=== PATIENT | male | born 1935 | race Hispanic/Latino ===

== ENCOUNTER 2016-12-02 06:56 | Day surgery (SDC) | payer MEDICARE ==
[2016-12-02] MEDS ORDERED: NACL 0.9% 500 ML 500 ML IV SCH (08:00)
[2016-12-02] MEDS: SUBLIMAZE ONE ×2 (10:00→10:15)
[2016-12-02] MEDS: XYLOCAINE 2% INFILTRATI ONE ×2 (10:00→10:16)
[2016-12-02] MEDS: VERSED ONE ×2 (10:00→10:15)
[2016-12-02] MEDS: HEPARIN/NS 5000 UNIT/500ML(CATH LAB) 1,000 ML IR ONE ×2 (10:01→10:16)
--- NOTE | 2016-12-02 11:40 | Short Stay Summary ---
Short Stay Documentation Date of service: 12/02/16 - History H&P: obtained from office - Allergies and Medications Current Medications: Allergies clonidine Allergy (Verified 12/02/16 08:23) Unknown aspirin Adverse Reaction (Verified 12/02/16 08:23) Unknown stomach hurts ALL SULFA DRUGS Allergy (Unknown, Uncoded 12/02/16 07:18) Rash Home Medications Medication Instructions Recorded Confirmed Last Taken Type Gabapentin [Neurontin] 300 mg PO BID 12/02/16 12/02/16 12/01/16 History HYDROcodone/APAP 7.5-325 [[place] 1 each PO Q6HR PRN 12/02/16 12/02/16 11/29/16 History 7.5/325] Metoprolol Xl [Metoprolol 100 mg PO QDAY 12/02/16 12/02/16 12/02/16 History SUCCINATE ER TAB] Pregabalin [Lyrica] 75 mg PO BID 12/02/16 12/02/16 12/01/16 History Simvastatin [Zocor TAB] 40 mg PO QHS 12/02/16 12/02/16 12/01/16 History Valsartan [Diovan] 320 mg PO QDAY 12/02/16 12/02/16 12/02/16 History amLODIPine [Norvasc] 10 mg PO DAILY 12/02/16 12/02/16 12/02/16 History Active Medications Sodium Chloride (Nacl 0.9% 500 Ml) 500 mls @ 50 mls/hr IV DIRECT CODY Stop: 12/02/16 17:59 Last Admin: 12/02/16 09:30 Dose: 50 mls/hr - Brief post op/procedure progress note Date of procedure: 12/02/16 Pre-op diagnosis: chest pain, abnormal stress test Procedure: left heart cath - Hospital course Hospital course: Please see dictated cath report. - Disposition Condition at discharge: Stable Disposition: DISCHARGED TO HOME OR SELFCARE - Discharge Diagnoses (1) Chest pain Status: Acute Qualifiers: Chest pain type: C (2) Abnormal stress test Status: Acute (3) CAD (coronary artery disease) Status: Chronic Qualifiers: Coronary Disease-Associated Artery/Lesion type: C [place] vs. transplanted heart: N Associated angina: A (4) Hx of CABG Status: Chronic (5) Hypertension Status: Chronic Qualifiers: Hypertension type: H (6) Diabetes Status: Chronic Qualifiers: Diabetes mellitus type: D Diabetes mellitus complication status: D Diabetes mellitus complication detail: D Diabetic retinopathy severity: D Proliferative retinopathy type: P Diabetes mellitus macular edema: D Diabetes mellitus intermediate insulin use: D Laterality: L Chronic kidney disease stage: C Short Stay Discharge Plan Activity: advance as tolerated Weight Bearing Status: Weight Bear as Tolerated Diet: low fat, low cholesterol, low salt Wound: keep clean and dry Follow up with: LACEY BOOTHE MD [Primary Care Provider] - 7 Days SHON DICKINSON MD [Staff Physician] - 7 Days Forms: [facility]Cat PCI D/C Instructions, Work/School Excuse Out Patient Prescriptions: Clopidogrel [Plavix] 75 mg PO QDAY #30 tablet
--- NOTE | 2016-12-02 12:32 | Cardiac Catherization Report ---
CARDIAC CATHETERIZATION INDICATION FOR PROCEDURE: The patient is an 81-year-old gentleman with history of longstanding diabetes mellitus. He had aortocoronary bypass surgery done in 1996. At that time, the patient has multivessel disease. Cardiac catheterization done at that time showed left coronary system to be dominant. Right coronary artery could not be engaged and was felt to be small and nondominant. Underwent 4-vessel bypass with left internal mammary to the LAD, saphenous vein graft to the ramus branch, saphenous vein graft to the mid obtuse marginal branch, and also saphenous vein graft to the posterolateral obtuse marginal branch of the left system. Since that time the patient being continued on medical therapy. He had a recent nuclear imaging, which showed apical ischemia. He has intermittent chest pain. Because of abnormal nuclear imaging, the patient is scheduled for cardiac catheterization. The patient at this time is not doing much exercises. His chest pains are mild. DESCRIPTION OF PROCEDURE: The patient was brought to the catheterization laboratory in a fasting condition. The right groin area was thoroughly cleansed with Betadine solution. Sterile drapes were applied. Local anesthesia was achieved using 2% Xylocaine. Right femoral artery puncture was made using 5-Mongolian micropuncture needle. Subsequently, a 6-Mongolian sheath was introduced. A 6-Mongolian multipurpose catheter was used to obtain the left ventriculogram done in GREEN projection using hand injection and left coronary angiograms were obtained in multiple views. Subsequently, left saphenous vein bypass graft catheter was used to obtain the angiograms of the vein graft to the ramus branch, vein graft to the mid obtuse marginal branch. Only two markers were noted and saphenous vein graft to the posterolateral branch could not be engaged. An aortogram was obtained to difficulty visualize these grafts. Right coronary artery could not be engaged and as mentioned above was felt to be small and nondominant in 1996 and at that time also could not be engaged. Left mammary angiogram was obtained using 5-Mongolian left internal mammary catheter. After obtaining the angiograms, an aortogram was performed to visualize the RCA and third vein graft. However, could not visualize any of these. At the end of the procedure, angiograms of the right femoral artery were obtained. When it was felt appropriate, 6-Mongolian Angio-Seal was applied with good hemostasis. No untoward complications were noted. The patient was transferred to the recovery room in stable condition. The patient tolerated the procedure well. Following findings were noted: HEMODYNAMICS: Opening aortic pressure 116/54, left ventricular pressure 120/19. Left ventriculogram done in GREEN projection shows left ventricular size to be upper limits of normal, mild diffuse hypokinesis noted. Ejection fraction was felt to be 40-45%. Only limited amount of dye was injected and mitral regurgitation could not be evaluated. Right coronary artery as mentioned above could not be engaged was felt to be small and nondominant and there was no coronary angiography done in 1996. Left coronary artery, left main is patent, however, is occluded in the distal part with no visualization of the LAD or circumflex branches. Only small branches were seen arising from the left main. On LCA injection, there are collaterals through the left atrium filling what appears to be nondominant right coronary artery. Saphenous vein graft to the ramus branch is patent except for a small area in the proximal part, this is a focal 60-70% eccentric lesion noted. It was seen second views. However, LITO 3 flow was noted. Ramus branch medium sized vessel shows mild diffuse disease, no obstructive lesions were noted. Saphenous vein graft to the mid obtuse marginal branch is widely patent without any significant disease. Mid obtuse marginal branch itself distally without significant disease, proximal to the anastomosis of the vein graft, obtuse marginal branch has 90% lesion and this is filling retrogradely distal circumflex artery including posterolateral branch. Distal circumflex artery and the AV groove has severe diffuse disease and posterolateral branch are filling mostly antegrade to some extent retrograde vein graft injection to the mid obtuse marginal branch. Saphenous vein graft to the posterolateral branch could not be engaged and considering that posterolateral obtuse marginal branch are filling through vein graft injection to the mid obtuse marginal branch, most likely vein graft to the posterolateral branch is occluded. Left internal mammary graft to LAD to the mid, to the distal LAD is widely patent. Distal LAD showed moderate diffuse distal disease. Proximally, LAD is filling up to the point of occlusion. Collaterals were noted to the posterolateral branches of the left coronary system on injection of the vein graft to the mid obtuse marginal branch. FINAL IMPRESSION: 1. Mild LV dysfunction, ejection fraction 40-55% with mild diffuse hypokinesis. 2. Severe triple vessel disease with 100% occlusion of the proximal LAD and circumflex branches. 3. LAD is well supplied by left internal mammary graft to the LAD; however, LAD distally has moderate diffuse disease. 4. Left dominant system with saphenous vein graft to the ramus branch showing a focal 60-70% proximal lesion. Marginal branch itself a medium caliber vessel without significant disease and saphenous vein graft to the mid obtuse marginal branch is widely patent. Mid obtuse marginal branch distally without significant disease. However, this vein graft is filling posterolateral obtuse marginal branches retrogradely through the AV circumflex vessel, which is diffusely diseased and also some retrograde collaterals were noted. At this time, considering the above angiographic pictures, would continue medical therapy. The patient is not ambulating much at this time. I encouraged him to ambulate as much as he can. If he gets any anginal symptoms, then we can consider intervention of the vein graft to the ramus intermedius branch. The patient is not taking aspirin or Plavix. We will start him on baby aspirin 81 mg in addition to clopidogrel 75 mg a day. We will evaluate him in the office in the next few weeks. The patient has any anginal symptoms, consider intervention of the vein graft to the ramus branch. This has a focal lesion. However, this is a 20 year old graft. Good hemostasis was achieved with application of 6-Mongolian Angio-Seal as mentioned above, procedure was uncomplicated. JOB# [id number] [place]/JUANCARLOS BENNETT
[2016-12-02 14:38] VITALS: BP 109/68
== END 2016-12-02 14:25 | disposition home or self-care (01) ==
LOC: OPU 06:56
PROVIDERS: ATTEND Internal Medicine
DX: I25.10 Atherosclerotic heart disease of native coronary artery without angina pectoris (principal); E11.9 Type 2 diabetes mellitus without complications; I10 Essential (primary) hypertension; E66.3 Overweight; F41.9 Anxiety disorder, unspecified; J44.9 Chronic obstructive pulmonary disease, unspecified; Z95.1 Presence of aortocoronary bypass graft; Z87.891 Personal history of nicotine dependence
CPT/HCPCS: 82962; 93005; 93010; 93459; 93567; C1760; C1769; C1894; J1644; J2250; J3010; J7040; Q9967

== ENCOUNTER 2017-03-28 03:53 | Emergency (ER) | payer MEDICARE ==
--- NOTE | 2017-03-28 06:17 | Emergency Department Report ---
ED Animal Bite HPI - General Chief Complaint: Animal Bite Stated Complaint: BITTEN BY POSSUM Time Seen by Provider: 03/28/17 06:00 Source: patient Mode of arrival: Ambulatory Limitations: No Limitations - History of Present Illness Initial Comments: 82-year-old male past medical history CAD, quadruple bypass, hypertension, diabetes, COPD, prostate surgery presents status post a possum riding his right hand. Patient states he found a possum in his kitchen grabbed it and threw it out into his yard. Possum bit the base of his right thumb this evening. Patient is accompanied by son. Denies any fever no chills visible bite charity/ small puncture wound at base of right thumb. Unsure of tetanus status. MD Complaint: animal bite Onset/Timin -: hour(s), days(s) Location: other (left hand) Right: Hand Animal: rodent (at base of left thumb) Animal Control Notified: Yes Mechanism: bite Pain Description: sharp Context: unprovoked Associated Symptoms: none - Related Data Patient Tetanus UTD: No Home Medications Medication Instructions Recorded Confirmed Last Taken Gabapentin [Neurontin] 300 mg PO BID 12/02/16 12/02/16 12/01/16 HYDROcodone/APAP 7.5-325 [[place] 1 each PO Q6HR PRN 12/02/16 12/02/16 11/29/16 7.5/325] Metoprolol Xl [Metoprolol 100 mg PO QDAY 12/02/16 12/02/16 12/02/16 SUCCINATE ER TAB] Pregabalin [Lyrica] 75 mg PO BID 12/02/16 12/02/16 12/01/16 Simvastatin [Zocor TAB] 40 mg PO QHS 12/02/16 12/02/16 12/01/16 Valsartan [Diovan] 320 mg PO QDAY 12/02/16 12/02/16 12/02/16 amLODIPine [Norvasc] 10 mg PO DAILY 12/02/16 12/02/16 12/02/16 Previous Rx's Medication Instructions Recorded Last Taken Type Clopidogrel [Plavix] 75 mg PO QDAY #30 tablet 12/02/16 Unknown Rx Acetaminophen [Acetaminophen TAB] 500 mg PO Q6HR PRN #30 tablet 03/28/17 Unknown Rx Neomycn/Baci Zn/Pmyx Bs/Pramox 28 gm TP BID #1 oint...g. 03/28/17 Unknown Rx [Triple Antibioti-Pain Rlf Oint] Allergies Allergy/AdvReac Type Severity Reaction Status Date / Time clonidine Allergy Unknown Verified 12/02/16 08:23 aspirin AdvReac Unknown Verified 12/02/16 08:23 ALL SULFA DRUGS Allergy Unknown Rash Uncoded 12/02/16 07:18 ED Review of Systems ROS: Stated complaint: BITTEN BY POSSUM Other details as noted in HPI Constitutional: denies: chills, fever Eyes: denies: eye pain, eye discharge, vision change ENT: denies: ear pain, throat pain Respiratory: denies: cough, shortness of breath, wheezing Cardiovascular: denies: chest pain, palpitations Endocrine: no symptoms reported Gastrointestinal: denies: abdominal pain, nausea, diarrhea Genitourinary: denies: urgency, dysuria Musculoskeletal: denies: back pain, joint swelling, arthralgia Skin: denies: rash, lesions Neurological: denies: headache, weakness, paresthesias Psychiatric: denies: anxiety, depression Hematological/Lymphatic: denies: easy bleeding, easy bruising ED Past Medical Hx - Past Medical History Previous Medical History?: Yes Hx Hypertension: Yes Hx Diabetes: Yes (II) Hx Kidney Stones: Yes Hx COPD: Yes Additional medical history: 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 - Surgical History Hx Open Heart Surgery: Yes (vessel Quadruple bypass) - Social History Smoking Status: Never Smoker Substance Use Type: None - Medications Home Medications: Home Medications Medication Instructions Recorded Confirmed Last Taken Type Clopidogrel [Plavix] 75 mg PO QDAY #30 tablet 12/02/16 Unknown Rx Gabapentin [Neurontin] 300 mg PO BID 12/02/16 12/02/16 12/01/16 History HYDROcodone/APAP 7.5-325 [[place] 1 each PO Q6HR PRN 12/02/16 12/02/16 11/29/16 History 7.5/325] Metoprolol Xl [Metoprolol 100 mg PO QDAY 12/02/16 12/02/16 12/02/16 History SUCCINATE ER TAB] Pregabalin [Lyrica] 75 mg PO BID 12/02/16 12/02/16 12/01/16 History Simvastatin [Zocor TAB] 40 mg PO QHS 12/02/16 12/02/16 12/01/16 History Valsartan [Diovan] 320 mg PO QDAY 12/02/16 12/02/16 12/02/16 History amLODIPine [Norvasc] 10 mg PO DAILY 12/02/16 12/02/16 12/02/16 History Acetaminophen [Acetaminophen TAB] 500 mg PO Q6HR PRN #30 tablet 03/28/17 Unknown Rx Neomycn/Baci Zn/Pmyx Bs/Pramox 28 gm TP BID #1 oint...g. 03/28/17 Unknown Rx [Triple Antibioti-Pain Rlf Oint] ED Physical Exam - General Limitations: No Limitations General appearance: alert, in no apparent distress - Head Head exam: Present: atraumatic, normocephalic - Eye Eye exam: Present: normal appearance, PERRL, EOMI - ENT ENT exam: Present: mucous membranes moist - Neck Neck exam: Present: normal inspection - Respiratory Respiratory exam: Present: normal lung sounds bilaterally. Absent: respiratory distress - Cardiovascular Cardiovascular Exam: Present: regular rate, normal rhythm. Absent: systolic murmur, diastolic murmur, rubs, gallop - GI/Abdominal GI/Abdominal exam: Present: soft, normal bowel sounds - Rectal Rectal exam: Present: deferred - Extremities Exam Extremities exam: Present: normal inspection - Expanded Upper Extremity Exam Left Shoulder Exam: Present: normal inspection, full ROM Upper Arm exam: Present: normal inspection, full ROM Elbow exam: Present: normal inspection, full ROM Forearm Wrist exam: Present: normal inspection, full ROM Hand Wrist exam: Present: abrasion, other (small abrasion/puncture wound base of left thumb) Hand L/R Front: 1 - Positive: abrasion (small abrasion/bite wound base of left thumb no large laceration) - Back Exam Back exam: Present: normal inspection - Neurological Exam Neurological exam: Present: alert, oriented X3 - Psychiatric Psychiatric exam: Present: normal affect, normal mood - Skin Skin exam: Present: warm, dry, intact, normal color. Absent: rash ED Course Vital Signs 06/18/17 04:18 Temperature 98.4 F Pulse Rate 56 L Respiratory 20 Rate Blood Pressure 159/74 O2 Sat by Pulse 96 Oximetry Critical care attestation.: If time is entered above; I have spent that time in minutes in the direct care of this critically ill patient, excluding procedure time. Critical Care Time: A/P: Animal bite right hand 1-tetanus update, rabies vaccine, rabies immunoglobulin weight-based dose equals 0 units. Rabies vaccine as per up-to-date recommendations doses (1 mL each) on days 0, 3, 7, 14 (ACIP [Rupprecht 2010]). 2-Augmentin 875 twice a day 10 days 3-patient provided with information on animal bites, rabies vaccination 4-patient's son present for discussion about prophylaxis and need for antibiotics 5- Tylenol when necessary 6- triple antibiotic to bite site ED Disposition Clinical Impression: Need for rabies vaccination Animal bite of hand Qualifiers: Encounter type: sequela Laterality: right Qualified Code(s): S61.451S - Open bite of right hand, sequela Disposition: DC-01 TO HOME OR SELFCARE Is pt being admited?: No Does the pt Need Aspirin: No Condition: Stable Instructions: Animal Bite (ED), Rabies Vaccine (Injection) Additional Instructions: Rabies vaccine schedule: Day 0: 03/28/17: received! Day 3: 03/31/17: pending Day 7: 04/04/17: pending Day 14: 04/11/17: pending doses (1 mL each) on days 0, 3, 7, 14 (ACIP [Rupprecht 2009]). Prescriptions: Acetaminophen [Acetaminophen TAB] 500 mg PO Q6HR PRN #30 tablet PRN Reason: Pain Neomycn/Baci Zn/Pmyx Bs/Pramox [Triple Antibioti-Pain Rlf Oint] 28 gm TP BID #1 oint...g. Referrals: [facility] [place] [Outside] - 3-5 Days Forms: Accompanied Note Time of Disposition: 06:50
[2017-03-28] MEDS ORDERED: BOOSTRIX IM ONE (06:19)
[2017-03-28] MEDS ORDERED: hyperRAB S/D IM ONE (06:19)
[2017-03-28] MEDS ORDERED: AUGMENTIN 875 MG PO ONE (06:19)
[2017-03-28] MEDS ORDERED: RABAVERT RABIES VACCINE(PCEC) IM ONE (06:19)
[2017-03-28] MEDS ORDERED: TYLENOL PO ONE (06:20)
[2017-03-28 07:23] VITALS: BP 131/69
== END 2017-03-28 07:23 | disposition home or self-care (01) ==
LOC: ED 03:53
DX: S61.451A Open bite of right hand, initial encounter (principal); I10 Essential (primary) hypertension; J44.9 Chronic obstructive pulmonary disease, unspecified; E11.9 Type 2 diabetes mellitus without complications; W55.81XA Bitten by other mammals, initial encounter; Y93.89 Activity, other specified; Y99.8 Other external cause status; Y92.090 Kitchen in other non-institutional residence as the place of occurrence of the external cause; Z88.6 Allergy status to analgesic agent; Z88.2 Allergy status to sulfonamides; Z88.8 Allergy status to other drugs, medicaments and biological substances
CPT/HCPCS: 90375; 90471; 90472; 90675; 90715; 96372

== ENCOUNTER 2017-03-31 13:01 | Emergency (ER) | payer MEDICARE ==
[2017-03-31 13:10] VITALS: BP 143/66
[2017-03-31] MEDS ORDERED: RABAVERT RABIES VACCINE(PCEC) IM ONE (13:40)
--- NOTE | 2017-03-31 14:17 | Emergency Department Report ---
Entered by ROSIE GALLAGHER, acting as scribe for CHANA FOFANA NP. ED General Adult HPI - General Chief complaint: Medical Clearance Stated complaint: 2ND RABIES SHOT Time Seen by Provider: 03/31/17 13:39 Source: patient Mode of arrival: Ambulatory Limitations: No Limitations - History of Present Illness Initial comments: 82 y/o male with a PMHx of HTN, NIDDM, COPD, and kidney stones presents to the ED for a f/u for rabies shot s/p an animal bite that occurred 3 days ago. Patient states he was bitten by an opossum in his home 3 days ago on his right hand. Patient states he was seen in this ED for his first set of rabies shot after bite. PT states he was told to return today for his 2nd vaccine. Denies fever, chills, nausea, vomiting, and drainage. Allergic to clonidine, aspirin, and sulfa. Complaint: RABIES SHOT Onset/Timin -: days(s) Location: right, upper extremity (right hand ) Radiation: non-radiation Severity scale (0 -10): 0 Improves with: none Worsens with: none Associated Symptoms: denies other symptoms. denies: chest pain, cough, fever/ chills, headaches, nausea/vomiting, rash, shortness of breath, syncope Treatments Prior to Arrival: other (rabies vaccinations) - Related Data Home Medications Medication Instructions Recorded Confirmed Last Taken Gabapentin [Neurontin] 300 mg PO BID 12/02/16 12/02/16 12/01/16 HYDROcodone/APAP 7.5-325 [[place] 1 each PO Q6HR PRN 12/02/16 12/02/16 11/29/16 7.5/325] Metoprolol Xl [Metoprolol 100 mg PO QDAY 12/02/16 12/02/16 12/02/16 SUCCINATE ER TAB] Pregabalin [Lyrica] 75 mg PO BID 12/02/16 12/02/16 12/01/16 Simvastatin [Zocor TAB] 40 mg PO QHS 12/02/16 12/02/16 12/01/16 Valsartan [Diovan] 320 mg PO QDAY 12/02/16 12/02/16 12/02/16 amLODIPine [Norvasc] 10 mg PO DAILY 12/02/16 12/02/16 12/02/16 Previous Rx's Medication Instructions Recorded Last Taken Type Clopidogrel [Plavix] 75 mg PO QDAY #30 tablet 12/02/16 Unknown Rx Acetaminophen [Acetaminophen TAB] 500 mg PO Q6HR PRN #30 tablet 03/28/17 Unknown Rx Neomycn/Baci Zn/Pmyx Bs/Pramox 28 gm TP BID #1 oint...g. 03/28/17 Unknown Rx [Triple Antibioti-Pain Rlf Oint] Allergies Allergy/AdvReac Type Severity Reaction Status Date / Time clonidine Allergy Unknown Verified 12/02/16 08:23 aspirin AdvReac Unknown Verified 12/02/16 08:23 ALL SULFA DRUGS Allergy Unknown Rash Uncoded 12/02/16 07:18 ED Review of Systems Comment: All other systems reviewed and negative Constitutional: denies: chills, fever Respiratory: denies: cough, orthopnea, shortness of breath, SOB with exertion, SOB at rest, stridor, wheezing Cardiovascular: denies: chest pain, palpitations, dyspnea on exertion, orthopnea , edema, syncope Gastrointestinal: denies: nausea, vomiting Musculoskeletal: denies: back pain, joint swelling, arthralgia Skin: other (Opossum bite on right hand). 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 - Surgical History Hx Open Heart Surgery: Yes (vessel Quadruple bypass) - Social History Smoking Status: Never Smoker Substance Use Type: None - Medications Home Medications: Home Medications Medication Instructions Recorded Confirmed Last Taken Type Clopidogrel [Plavix] 75 mg PO QDAY #30 tablet 12/02/16 Unknown Rx Gabapentin [Neurontin] 300 mg PO BID 12/02/16 12/02/16 12/01/16 History HYDROcodone/APAP 7.5-325 [[place] 1 each PO Q6HR PRN 12/02/16 12/02/16 11/29/16 History 7.5/325] Metoprolol Xl [Metoprolol 100 mg PO QDAY 12/02/16 12/02/16 12/02/16 History SUCCINATE ER TAB] Pregabalin [Lyrica] 75 mg PO BID 12/02/16 12/02/16 12/01/16 History Simvastatin [Zocor TAB] 40 mg PO QHS 12/02/16 12/02/16 12/01/16 History Valsartan [Diovan] 320 mg PO QDAY 12/02/16 12/02/16 12/02/16 History amLODIPine [Norvasc] 10 mg PO DAILY 12/02/16 12/02/16 12/02/16 History Acetaminophen [Acetaminophen TAB] 500 mg PO Q6HR PRN #30 tablet 03/28/17 Unknown Rx Neomycn/Baci Zn/Pmyx Bs/Pramox 28 gm TP BID #1 oint...g. 03/28/17 Unknown Rx [Triple Antibioti-Pain Rlf Oint] ED Physical Exam - General Limitations: No Limitations General appearance: alert, in no apparent distress - Head Head exam: Present: atraumatic, normocephalic, normal inspection - Eye Eye exam: Present: normal appearance, PERRL, EOMI - ENT ENT exam: Present: normal exam, mucous membranes moist, normal external ear exam - Neck Neck exam: Present: normal inspection, full ROM. Absent: tenderness, meningismus, lymphadenopathy - Respiratory Respiratory exam: Present: normal lung sounds bilaterally. Absent: respiratory distress, wheezes, rales, rhonchi, stridor - Cardiovascular Cardiovascular Exam: Present: regular rate, normal rhythm. Absent: systolic murmur, diastolic murmur, rubs, gallop - GI/Abdominal GI/Abdominal exam: Present: soft, distended. Absent: tenderness - Extremities Exam Extremities exam: Present: full ROM, normal capillary refill - Expanded Upper Extremity Exam Right General: Present: abrasion. Absent: laceration Shoulder Exam: Present: normal inspection Upper Arm exam: Present: normal inspection, full ROM Elbow exam: Present: normal inspection, full ROM Forearm Wrist exam: Present: normal inspection, full ROM Hand Wrist exam: Present: full ROM, abrasion (superfical abrasion to the base of the R thumb ). Absent: tenderness Vascular: Present: radial pulse - Back Exam Back exam: Present: normal inspection - Neurological Exam Neurological exam: Present: alert, oriented X3 - Psychiatric Psychiatric exam: Present: normal affect, normal mood - Skin Skin exam: Present: warm, dry, intact, abrasion (no signs of secondary infection ). Absent: rash, erythema ED Course Vital Signs 03/31/17 13:06 Temperature 97.9 F Pulse Rate 60 Respiratory 18 Rate Blood Pressure 143/66 O2 Sat by Pulse 97 Oximetry - Reevaluation(s) Reevaluation #1: 03/31/17 14:15 PT given 2nd shot in Rabies series - Pulse Oximetry Interpretation Digit-Finger Initial Pulse Oximetry Readin Actions Taken: none ED Medical Decision Making - Differential Diagnosis animal bite, rabies vaccine Critical Care Time: No ED Disposition Clinical Impression: Need for rabies vaccination Disposition: DC-01 TO HOME OR SELFCARE Is pt being admited?: No Does the pt Need Aspirin: No Condition: Stable Instructions: Rabies Vaccine (Injection), Rabies (ED) Additional Instructions: continue your rabies vaccine series as previously instructed. Your next shot will be due 1 week after the bite. Referrals: PRIMARY CARE, [Primary Care Provider] - 3-5 Days [facility] [Outside] - 3-5 Days Time of Disposition: 14:17 This documentation as recorded by the AILEEN meyers JASMINE,accurately reflects the service I personally performed and the decisions made by CT fierro TRACY M, JORGE.
== END 2017-03-31 14:39 | disposition home or self-care (01) ==
LOC: ED 13:01
DX: Z23 Encounter for immunization (principal)
CPT/HCPCS: 90471; 90675; 96372; 99282

== ENCOUNTER 2017-04-04 10:15 | Emergency (ER) | payer MEDICARE ==
[2017-04-04 10:28] VITALS: BP 128/67
[2017-04-04] MEDS ORDERED: RABAVERT RABIES VACCINE(PCEC) IM ONE (11:50)
--- NOTE | 2017-04-04 12:00 | Emergency Department Report ---
ED General Adult HPI - General Chief complaint: Medical Clearance Stated complaint: RABIES SHOT Time Seen by Provider: 04/04/17 11:49 Source: patient Mode of arrival: Ambulatory Limitations: No Limitations - History of Present Illness Initial comments: PT was bit on his right hand by a opossum in his house 1 week ago. PT states the bite site has healed. PT states he needs his rabies shot. PT aware he will have one more vaccine in his series after the vaccination today MD Complaint: rabies shot -: Sudden, week(s) (1) Location: right, upper extremity Severity scale (0 -10): 0 Consistency: now resolved Improves with: medication Associated Symptoms: denies: fever/chills, nausea/vomiting Treatments Prior to Arrival: none - Related Data Home Medications Medication Instructions Recorded Confirmed Last Taken Gabapentin [Neurontin] 300 mg PO BID 12/02/16 12/02/16 12/01/16 HYDROcodone/APAP 7.5-325 [[place] 1 each PO Q6HR PRN 12/02/16 12/02/16 11/29/16 7.5/325] Metoprolol Xl [Metoprolol 100 mg PO QDAY 12/02/16 12/02/16 12/02/16 SUCCINATE ER TAB] Pregabalin [Lyrica] 75 mg PO BID 12/02/16 12/02/16 12/01/16 Simvastatin [Zocor TAB] 40 mg PO QHS 12/02/16 12/02/16 12/01/16 Valsartan [Diovan] 320 mg PO QDAY 12/02/16 12/02/16 12/02/16 amLODIPine [Norvasc] 10 mg PO DAILY 12/02/16 12/02/16 12/02/16 Previous Rx's Medication Instructions Recorded Last Taken Type Clopidogrel [Plavix] 75 mg PO QDAY #30 tablet 12/02/16 Unknown Rx Acetaminophen [Acetaminophen TAB] 500 mg PO Q6HR PRN #30 tablet 03/28/17 Unknown Rx Neomycn/Baci Zn/Pmyx Bs/Pramox 28 gm TP BID #1 oint...g. 03/28/17 Unknown Rx [Triple Antibioti-Pain Rlf Oint] Allergies Allergy/AdvReac Type Severity Reaction Status Date / Time clonidine Allergy Unknown Verified 12/02/16 08:23 aspirin AdvReac Unknown Verified 12/02/16 08:23 ALL SULFA DRUGS Allergy Unknown Rash Uncoded 12/02/16 07:18 ED Review of Systems ROS: Stated complaint: RABIES SHOT Other details as noted in HPI Comment: All other systems reviewed and negative Constitutional: denies: chills, fever Gastrointestinal: denies: nausea, vomiting Musculoskeletal: denies: joint swelling Skin: as per HPI (pt states the bite has healed). 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 - Surgical History Past Surgical History?: Yes Hx Open Heart Surgery: Yes (vessel Quadruple bypass) - Social History Smoking Status: Never Smoker Substance Use Type: Prescribed - Medications Home Medications: Home Medications Medication Instructions Recorded Confirmed Last Taken Type Clopidogrel [Plavix] 75 mg PO QDAY #30 tablet 12/02/16 Unknown Rx Gabapentin [Neurontin] 300 mg PO BID 12/02/16 12/02/16 12/01/16 History HYDROcodone/APAP 7.5-325 [[place] 1 each PO Q6HR PRN 12/02/16 12/02/16 11/29/16 History 7.5/325] Metoprolol Xl [Metoprolol 100 mg PO QDAY 12/02/16 12/02/16 12/02/16 History SUCCINATE ER TAB] Pregabalin [Lyrica] 75 mg PO BID 12/02/16 12/02/16 12/01/16 History Simvastatin [Zocor TAB] 40 mg PO QHS 12/02/16 12/02/16 12/01/16 History Valsartan [Diovan] 320 mg PO QDAY 12/02/16 12/02/16 12/02/16 History amLODIPine [Norvasc] 10 mg PO DAILY 12/02/16 12/02/16 12/02/16 History Acetaminophen [Acetaminophen TAB] 500 mg PO Q6HR PRN #30 tablet 03/28/17 Unknown Rx Neomycn/Baci Zn/Pmyx Bs/Pramox 28 gm TP BID #1 oint...g. 03/28/17 Unknown Rx [Triple Antibioti-Pain Rlf Oint] ED Physical Exam - General Limitations: No Limitations General appearance: alert, in no apparent distress - Head Head exam: Present: atraumatic, normocephalic - Eye Eye exam: Present: normal appearance, PERRL, EOMI. Absent: conjunctival injection - Neck Neck exam: Present: normal inspection, full ROM - Cardiovascular Cardiovascular Exam: Present: regular rate, normal rhythm - Extremities Exam Extremities exam: Present: normal inspection, full ROM, normal capillary refill. Absent: tenderness - Back Exam Back exam: Present: full ROM. Absent: tenderness - Neurological Exam Neurological exam: Present: alert, oriented X3, normal gait - Psychiatric Psychiatric exam: Present: normal affect, normal mood - Skin Skin exam: Present: warm, dry, intact, normal color. Absent: erythema ED Course Vital Signs 04/04/17 10:23 Temperature 97.7 F Pulse Rate 59 L Respiratory 18 Rate Blood Pressure 128/67 O2 Sat by Pulse 95 Oximetry - Reevaluation(s) Reevaluation #1: 04/04/17 11:59 PT aware that his third rabies shot in the four shot series will be given today. PT aware his next shot will be due in 1 week. - Pulse Oximetry Interpretation Digit-Finger Initial Pulse Oximetry Readin Actions Taken: none ED Medical Decision Making - Differential Diagnosis rabies vaccine Critical Care Time: No Critical care attestation.: If time is entered above; I have spent that time in minutes in the direct care of this critically ill patient, excluding procedure time. ED Disposition Clinical Impression: Need for rabies vaccination Disposition: DC-01 TO HOME OR SELFCARE Is pt being admited?: No Does the pt Need Aspirin: No Condition: Stable Instructions: Rabies Vaccine (Injection) Additional Instructions: your final shot in the series will be do on 04-11-17 Referrals: LACEY BOOTHE MD [Primary Care Provider] - 3-5 Days Time of Disposition: 12:00
== END 2017-04-04 12:35 | disposition home or self-care (01) ==
LOC: ED 10:15
DX: Z23 Encounter for immunization (principal); I10 Essential (primary) hypertension; E11.9 Type 2 diabetes mellitus without complications; J44.9 Chronic obstructive pulmonary disease, unspecified; Z88.6 Allergy status to analgesic agent; Z88.2 Allergy status to sulfonamides; Z88.8 Allergy status to other drugs, medicaments and biological substances
CPT/HCPCS: 90675; 96372

== ENCOUNTER 2020-07-05 18:39 | Emergency (ER) | payer MEDICARE ==
--- NOTE | 2020-07-05 20:59 | Emergency Department Report ---
ED Abdominal Pain HPI - General Chief Complaint: Abdominal Pain Stated Complaint: KNOT ABD AREA LT PUI?: No Time Seen by Provider: 07/05/20 20:53 Source: patient Mode of arrival: Ambulatory Limitations: No Limitations - History of Present Illness Initial Comments: Patient is an 85-year-old male who presents emergency room with complaints of abdominal pain. Patient states he has had this abdominal pain for 6 to 7 months but the pain is worsening. Patient states the pain is now severe. Patient states it is a 9 out of 10. Patient states he also has had a bowel movement since 07/02/2020. Patient denies nausea and vomiting. Patient denies blood in his stool recently. Patient denies having melena recently. Patient denies chest pain or shortness of breath. Patient states that his abdominal pain is nonradiating. Patient states that his pain left-sided abdominal fullness. Patient denies fever and chills. Patient denies dysuria. Patient denies urinary complaints. Patient denies recent travel. Patient denies recent international travel. Patient denies exposure to the novel coronavirus. Patient denies sick contacts. Patient denies fever and chills. Patient denies cough. Patient denies diarrhea. Patient denies coming in contact with anybody with symptoms of the novel coronavirus. MD Complaint: abdominal pain -: Gradual, Sudden Location: LLQ Radiation: none Migration to: no migration Severity: severe Severity scale (0 -10): 8 Quality: stabbing Consistency: constant Improves With: rest Worsens With: movement Associated Symptoms: constipation. denies: nausea, vomiting, diarrhea, fever, chills, dysuria, hematemesis, hematochezia, melena, hematuria, anorexia, syncope - Related Data Home Medications Medication Instructions Recorded Confirmed Last Taken Gabapentin [Neurontin] 300 mg PO BID 12/02/16 12/02/16 12/01/16 HYDROcodone/APAP 7.5-325 [[place] 1 each PO Q6HR PRN 12/02/16 12/02/16 11/29/16 7.5/325] Metoprolol Xl [Metoprolol 100 mg PO QDAY 12/02/16 12/02/16 12/02/16 SUCCINATE ER TAB] Pregabalin [Lyrica] 75 mg PO BID 12/02/16 12/02/16 12/01/16 Simvastatin [Zocor TAB] 40 mg PO QHS 12/02/16 12/02/16 12/01/16 Valsartan [Diovan] 320 mg PO QDAY 12/02/16 12/02/16 12/02/16 amLODIPine [Norvasc] 10 mg PO DAILY 12/02/16 12/02/16 12/02/16 Previous Rx's Medication Instructions Recorded Last Taken Type Clopidogrel [Plavix] 75 mg PO QDAY #30 tablet 12/02/16 Unknown Rx Acetaminophen [Acetaminophen TAB] 500 mg PO Q6HR PRN #30 tablet 03/28/17 Unknown Rx Neomycn/Bacitrc/Polymyx/Pramox 28 gm TP BID #1 oint...g. 03/28/17 Unknown Rx [Triple Antibioti-Pain Rlf Oint] Sennosides/Docusate Sodium 1 each PO BID #30 tablet 07/05/20 Unknown Rx [Senna-S 8.6-50 mg Tablet] Allergies Allergy/AdvReac Type Severity Reaction Status Date / Time clonidine Allergy Unknown Verified 12/02/16 08:23 aspirin AdvReac Unknown Verified 12/02/16 08:23 ALL SULFA DRUGS Allergy Unknown Rash Uncoded 12/02/16 07:18 ED Review of Systems ROS: Stated complaint: KNOT ABD AREA LT Other details as noted in HPI Constitutional: denies: chills, fever Eyes: denies: eye pain, eye discharge, vision change ENT: denies: ear pain, throat pain Respiratory: denies: cough, shortness of breath, wheezing Cardiovascular: denies: chest pain, palpitations Endocrine: no symptoms reported Gastrointestinal: abdominal pain, constipation. 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, a-fib - Surgical History Past Surgical History?: No Hx Open Heart Surgery: Yes (vessel Quadruple bypass) - Family History Family history: no significant - Social History Smoking Status: Never Smoker Substance Use Type: None - Medications Home Medications: Home Medications Medication Instructions Recorded Confirmed Last Taken Type Clopidogrel [Plavix] 75 mg PO QDAY #30 tablet 12/02/16 Unknown Rx Gabapentin [Neurontin] 300 mg PO BID 12/02/16 12/02/16 12/01/16 History HYDROcodone/APAP 7.5-325 [[place] 1 each PO Q6HR PRN 12/02/16 12/02/16 11/29/16 History 7.5/325] Metoprolol Xl [Metoprolol 100 mg PO QDAY 12/02/16 12/02/16 12/02/16 History SUCCINATE ER TAB] Pregabalin [Lyrica] 75 mg PO BID 12/02/16 12/02/16 12/01/16 History Simvastatin [Zocor TAB] 40 mg PO QHS 12/02/16 12/02/16 12/01/16 History Valsartan [Diovan] 320 mg PO QDAY 12/02/16 12/02/16 12/02/16 History amLODIPine [Norvasc] 10 mg PO DAILY 12/02/16 12/02/16 12/02/16 History Acetaminophen [Acetaminophen TAB] 500 mg PO Q6HR PRN #30 tablet 03/28/17 Unknown Rx Neomycn/Bacitrc/Polymyx/Pramox 28 gm TP BID #1 oint...g. 03/28/17 Unknown Rx [Triple Antibioti-Pain Rlf Oint] Sennosides/Docusate Sodium 1 each PO BID #30 tablet 07/05/20 Unknown Rx [Senna-S 8.6-50 mg Tablet] ED Physical Exam - General Limitations: No Limitations General appearance: alert, in no apparent distress - Head Head exam: Present: atraumatic, normocephalic - Eye Eye exam: Present: normal appearance - ENT ENT exam: Present: mucous membranes moist - Neck Neck exam: Present: normal inspection - Respiratory Respiratory exam: Present: normal lung sounds bilaterally. Absent: respiratory distress - Cardiovascular Cardiovascular Exam: Present: regular rate, normal rhythm. Absent: systolic murmur, diastolic murmur, rubs, gallop - GI/Abdominal GI/Abdominal exam: Present: soft, tenderness, normal bowel sounds - Rectal Rectal exam: Present: deferred - Extremities Exam Extremities exam: Present: normal inspection - Back Exam Back exam: Present: normal inspection - Neurological Exam Neurological exam: Present: alert, oriented X3 - Psychiatric Psychiatric exam: Present: normal affect, normal mood - Skin Skin exam: Present: warm, dry, intact, normal color. Absent: rash ED Course Vital Signs 07/05/20 07/05/20 07/05/20 18:40 18:46 20:36 Temperature 98.1 F 98.1 F Pulse Rate 82 74 83 Respiratory 97 H 16 14 Rate Blood Pressure 140/84 140/84 O2 Sat by Pulse 97 96 Oximetry 07/05/20 07/05/20 07/05/20 20:46 21:11 21:30 Temperature Pulse Rate 75 79 Respiratory 16 18 17 Rate Blood Pressure 126/77 127/73 O2 Sat by Pulse 98 93 Oximetry 07/05/20 07/05/20 07/05/20 21:56 22:00 22:16 Temperature Pulse Rate 87 72 73 Respiratory 12 19 14 Rate Blood Pressure 127/73 127/73 127/73 O2 Sat by Pulse 94 92 93 Oximetry 07/05/20 07/05/20 22:30 22:46 Temperature Pulse Rate 83 77 Respiratory 14 20 Rate Blood Pressure 127/73 119/70 O2 Sat by Pulse 98 92 Oximetry - Reevaluation(s) Reevaluation #1: I discussed all results and clinical findings with patient. I discussed plan of care with patient. Patient agrees with plan of care. Patient is stable for discharge. Patient will be discharged home. Patient given discharge instructio ns. Patient voiced understanding of discharge instructions. 07/05/20 23:56 ED Medical Decision Making - Lab Data Result diagrams: 07/05/20 19:52 07/05/20 19:52 - Radiology Data Radiology results: report reviewed, image reviewed CT ABDOMEN AND PELVIS WITH CONTRAST INDICATION / CLINICAL INFORMATION: abd pain. TECHNIQUE: Axial CT images were obtained through the abdomen and pelvis after IV contrast. All CT scans at this location are performed using CT dose reduction for ALARA by means of automated exposure control. COMPARISON: None available. FINDINGS: LOWER CHEST: Prior sternotomy. LIVER: No significant abnormality. GALLBLADDER: Multiple large calcified gallstones. No evidence of acute cholecystitis. BILE DUCTS: No significant abnormality. PANCREAS: No significant abnormality. SPLEEN: There is a splenule. ADRENALS: No significant abnormality. RIGHT KIDNEY / URETER: Nonspecific perinephric fat stranding. No evidence of calcified stone or hydronephrosis. LEFT KIDNEY / URETER: Nonspecific perinephric fat stranding. No evidence of callus but stone or hydronephrosis. STOMACH / SMALL BOWEL: Small hiatal hernia. COLON: Colonic diverticulosis. No evidence of diverticulitis. APPENDIX: No significant abnormality. PERITONEUM: No free fluid. No free air. No complex fluid collection. LYMPH NODES: No significant adenopathy. AORTA / ARTERIES: Scattered calcifications are noted of the aorta and its branch vessels. IVC / VEINS: No significant abnormality. URINARY BLADDER: No significant abnormality. REPRODUCTIVE ORGANS: Prostatic calcifications are noted. ADDITIONAL FINDINGS: Bilateral small fat-containing inguinal hernias. SKELETAL SYSTEM: Multilevel degenerative changes are noted of the spine most prominent at L5-S1. Generalized osteopenia. IMPRESSION: 1. Nonspecific bilateral perinephric fat stranding without evidence of calcified stones or hydronephrosis. Correlation with UA to rule out infectious process is recommen ded. 2. Cholelithiasis without evidence of acute cholecystitis. 3. Small hiatal hernia. - Medical Decision Making Patient is an 85-year-old male that presents emergency room with complaints of abdominal pain. Patient complains of left lower quadrant abdominal pain. Patient has been off for many months but has worsened over the last few days. Patient also complained 3 days. Patient denies nausea vomiting. Patient had a CT done which showed perinephric stranding, cholelithiasis, No other acute findings found. Patient had labs done which were essentially unremarkable sent for hyperglycemia. Patient did not have a UTI. Patient's perinephric stranding is nonspecific and can be managed as an outpatient. Patient abdominal pain is nonemergent and can be managed as an outpatient. Patient stable for discharge. Patient discharged home with discharge instructions. - Differential Diagnosis Abdominal pain, constipation, obstruction Critical care attestation.: If time is entered above; I have spent that time in minutes in the direct care of this critically ill patient, excluding procedure time. ED Disposition Clinical Impression: Abdominal pain Qualifiers: Abdominal location: left lower quadrant Qualified Code(s): R10.32 - Left lower quadrant pain Constipation Qualifiers: Constipation type: unspecified constipation type Qualified Code(s): K59.00 - Constipation, unspecified Disposition: DC-01 TO HOME OR SELFCARE Is pt being admited?: No Does the pt Need Aspirin: No Condition: Stable Instructions: Constipation (ED), High Fiber Diet (ED), Obstipation (ED) Additional Instructions: Patient to follow-up with primary care in 2 to 3 days. Patient to follow-up with gastroenterology in 2 to 3 days. Patient to follow-up with urology in 2 to 3 days. Patient to rest. Patient to increase water. Patient to take Tylenol or ibuprofen as needed for pain. Patient to take meds as directed. Patient to return to the ER if condition worsens, changes or new symptoms arise. Prescriptions: Sennosides/Docusate Sodium [Senna-S 8.6-50 mg Tablet] 1 each PO BID #30 tablet Referrals: PRIMARY CARE, [Primary Care Provider] - 2-3 Days ZAKIYA MCARTHUR MD [Staff Physician] - 2-3 Days MARCIA PAZ MD [Staff Physician] - 2-3 Days Time of Disposition: 00:03
[2020-07-05 21:13] LABS: Alanine Aminotransferase 14 units/L (7-56); Albumin 4.4 g/dL (3.9-5); BUN/Creatinine Ratio 21; Blood Urea Nitrogen 17 mg/dL (9-20); Calcium 9.4 mg/dL (8.4-10.2); Hemolysis Index 21
[2020-07-05 21:14] LABS: Basophils # (Auto) 0.1 K/mm3 (0.0-0.1); Basophils % (Auto) 0.6 % (0.0-1.8); Eosinophils # (Auto) 0.3 K/mm3 (0.0-0.4); Eosinophils % (Auto) 2.5 % (0.0-4.3); Hematocrit 40.3 % (35.5-45.6); Hemoglobin 13.6 gm/dl (11.8-15.2); Lymphocytes # (Auto) 2.5 K/mm3 (1.2-5.4); Mean Corpuscular HGB Conc 34 % (32-34); Mean Corpuscular Volume 94 fl (84-94); Monocytes # (Auto) 1.2 K/mm3 (0.0-0.8); Monocytes % (Auto) 10.5 % (0.0-7.3); Platelet Count 212 K/mm3 (140-440); Red Blood Count 4.31 M/mm3 (3.65-5.03); Red Cell Distribution Width 14.2 % (13.2-15.2)
--- NOTE | 2020-07-05 22:07 | Cat Scan Report ---
CT ABDOMEN AND PELVIS WITH CONTRAST INDICATION / CLINICAL INFORMATION: abd pain. TECHNIQUE: Axial CT images were obtained through the abdomen and pelvis after IV contrast. All CT scans at this location are performed using CT dose reduction for ALARA by means of automated exposure control. COMPARISON: None available. FINDINGS: LOWER CHEST: Prior sternotomy. LIVER: No significant abnormality. GALLBLADDER: Multiple large calcified gallstones. No evidence of acute cholecystitis. BILE DUCTS: No significant abnormality. PANCREAS: No significant abnormality. SPLEEN: There is a splenule. ADRENALS: No significant abnormality. RIGHT KIDNEY / URETER: Nonspecific perinephric fat stranding. No evidence of calcified stone or hydro nephrosis. LEFT KIDNEY / URETER: Nonspecific perinephric fat stranding. No evidence of callus but stone or hydro nephrosis. STOMACH / SMALL BOWEL: Small hiatal hernia. COLON: Colonic diverticulosis. No evidence of diverticulitis. APPENDIX: No significant abnormality. PERITONEUM: No free fluid. No free air. No complex fluid collection. LYMPH NODES: No significant adenopathy. AORTA / ARTERIES: Scattered calcifications are noted of the aorta and its branch vessels. IVC / VEINS: No significant abnormality. URINARY BLADDER: No significant abnormality. REPRODUCTIVE ORGANS: Prostatic calcifications are noted. ADDITIONAL FINDINGS: Bilateral small fat-containing inguinal hernias. SKELETAL SYSTEM: Multilevel degenerative changes are noted of the spine most prominent at L5-S1. Gene ralized osteopenia. IMPRESSION: 1. Nonspecific bilateral perinephric fat stranding without evidence of calcified stones or hydronephr osis. Correlation with UA to rule out infectious process is recommended. 2. Cholelithiasis without evidence of acute cholecystitis. 3. Small hiatal hernia. Signer Name: Uzair Mendez MD Signed: 07/05/2020 10:03 PM Workstation Name: [id number]
[2020-07-05 23:25] LABS: Bilirubin,Urine NEG (Negative); Blood,Urine NEG (Negative); Color,Urine Yellow (Yellow); Protein,Urine <15 mg/dL mg/dL (Negative); WBC,Urine < 1.0 /HPF (0.0-6.0)
[2020-07-06 00:18] VITALS: BP 119/70
== END 2020-07-06 00:18 | disposition home or self-care (01) ==
LOC: ED 18:39
DX: R10.32 Left lower quadrant pain (principal); K59.00 Constipation, unspecified; I10 Essential (primary) hypertension; E11.9 Type 2 diabetes mellitus without complications; J44.9 Chronic obstructive pulmonary disease, unspecified; Z79.899 Other long term (current) drug therapy; Z98.890 Other specified postprocedural states; Z88.2 Allergy status to sulfonamides; Z88.6 Allergy status to analgesic agent
CPT/HCPCS: 36415; 74177; 80053; 81001; 83690; 85025; 99284; Q9967

== ENCOUNTER 2020-09-29 12:35 | Emergency (ER) | payer MEDICARE ==
--- NOTE | 2020-09-29 15:38 | Event Note ---
ED Screening Note ED Screening Note: states he has been having hyperglycemia for a month states that his insulin went bad and he has not had any insulin states he takes 70/30 and takes 40 units BID no fever, v/d, SOB This initial assessment/diagnostic orders/clinical plan/treatment(s) is/are subject to change based on patients health status, clinical progression and re- assessment by fellow clinical providers in the ED. Further treatment and workup at subsequent clinical providers discretion. Patient/guardian urged not to elope from the ED as their condition may be serious if not clinically assessed and managed. Initial orders include: labs
[2020-09-29 15:59] LABS: Basophils # (Auto) 0.1 K/mm3 (0.0-0.1); Eosinophils # (Auto) 0.4 K/mm3 (0.0-0.4); Eosinophils % (Auto) 3.6 % (0.0-4.3); Hemoglobin 14.7 gm/dl (11.8-15.2); Lymphocytes # (Auto) 3.2 K/mm3 (1.2-5.4); Lymphocytes % (Auto) 26.6 % (13.4-35.0); Mean Corpuscular HGB Conc 34 % (32-34); Mean Corpuscular Volume 92 fl (84-94); Monocytes % (Auto) 8.6 % (0.0-7.3); Platelet Count 233 K/mm3 (140-440); Red Blood Count 4.66 M/mm3 (3.65-5.03); Red Cell Distribution Width 13.9 % (13.2-15.2)
[2020-09-29 16:20] LABS: Alanine Aminotransferase 16 units/L (7-56); Albumin 4.4 g/dL (3.9-5); BUN/Creatinine Ratio 20; Blood Urea Nitrogen 18 mg/dL (9-20); Calcium 9.6 mg/dL (8.4-10.2); Hemolysis Index 8
[2020-09-29] MEDS ORDERED: SODIUM CHLORIDE 0.9% 1000 ML 1,000 ML IV ONE (17:06)
[2020-09-29] MEDS ORDERED: INSULIN REGULAR, HUMAN 100 UNIT/ML 3ML VIAL IV ONE (17:06)
[2020-09-29] MEDS ORDERED: INSULIN REGULAR, HUMAN 100 UNIT/ML 3ML VIAL SUB-Q ONE (17:22)
--- NOTE | 2020-09-29 18:35 | Emergency Department Report ---
ED General Adult HPI - General Chief complaint: Hyperglycemia Stated complaint: NEED INSULIN Time Seen by Provider: 09/29/20 15:36 Source: patient Mode of arrival: Ambulatory Limitations: No Limitations - History of Present Illness Initial comments: pt is a 85 yo male who states he has been having hyperglycemia for a month states that his insulin went bad and he has not had any insulin, he states that he accidentally froze it because his refrigerator became too cold states he takes 70/30 and takes 30-40 units BID no fever, v/d, SOB, CP, cough He denies any other complaints - Related Data Home Medications Medication Instructions Recorded Confirmed Last Taken Gabapentin [Neurontin] 300 mg PO BID 12/02/16 12/02/16 12/01/16 HYDROcodone/APAP 7.5-325 [[place] 1 each PO Q6HR PRN 12/02/16 12/02/16 11/29/16 7.5/325] Metoprolol Xl [Metoprolol 100 mg PO QDAY 12/02/16 12/02/16 12/02/16 SUCCINATE ER TAB] Pregabalin [Lyrica] 75 mg PO BID 12/02/16 12/02/16 12/01/16 Simvastatin [Zocor TAB] 40 mg PO QHS 12/02/16 12/02/16 12/01/16 Valsartan [Diovan] 320 mg PO QDAY 12/02/16 12/02/16 12/02/16 amLODIPine [Norvasc] 10 mg PO DAILY 12/02/16 12/02/16 12/02/16 Previous Rx's Medication Instructions Recorded Last Taken Type Clopidogrel [Plavix] 75 mg PO QDAY #30 tablet 12/02/16 Unknown Rx Acetaminophen [Acetaminophen TAB] 500 mg PO Q6HR PRN #30 tablet 03/28/17 Unknown Rx Neomycn/Bacitrc/Polymyx/Pramox 28 gm TP BID #1 oint...g. 03/28/17 Unknown Rx [Triple Antibioti-Pain Rlf Oint] Sennosides/Docusate Sodium 1 each PO BID #30 tablet 07/05/20 Unknown Rx [Senna-S 8.6-50 mg Tablet] Insulin NPH Hum/Reg Insulin Hm 35 unit SQ BID #1 vial 09/29/20 Unknown Rx [HumuLIN 70-30 Vial] Allergies Allergy/AdvReac Type Severity Reaction Status Date / Time clonidine Allergy Unknown Verified 12/02/16 08:23 aspirin AdvReac Unknown Verified 12/02/16 08:23 ALL SULFA DRUGS Allergy Unknown Rash Uncoded 12/02/16 07:18 ED Review of Systems ROS: Stated complaint: NEED INSULIN Other details as noted in HPI Comment: All other systems reviewed and negative ED Past Medical Hx - Past Medical History Previous Medical History?: Yes Hx Hypertension: Yes Hx Diabetes: Yes (II) Hx Kidney Stones: Yes Hx COPD: Yes Additional medical history: 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, a-fib - Surgical History Past Surgical History?: Yes Hx Open Heart Surgery: Yes (vessel Quadruple bypass) - Social History Smoking Status: Never Smoker Substance Use Type: None - Medications Home Medications: Home Medications Medication Instructions Recorded Confirmed Last Taken Type Clopidogrel [Plavix] 75 mg PO QDAY #30 tablet 12/02/16 Unknown Rx Gabapentin [Neurontin] 300 mg PO BID 12/02/16 12/02/16 12/01/16 History HYDROcodone/APAP 7.5-325 [[place] 1 each PO Q6HR PRN 12/02/16 12/02/16 11/29/16 Hi story 7.5/325] Metoprolol Xl [Metoprolol 100 mg PO QDAY 12/02/16 12/02/16 12/02/16 History SUCCINATE ER TAB] Pregabalin [Lyrica] 75 mg PO BID 12/02/16 12/02/16 12/01/16 History Simvastatin [Zocor TAB] 40 mg PO QHS 12/02/16 12/02/16 12/01/16 History Valsartan [Diovan] 320 mg PO QDAY 12/02/16 12/02/16 12/02/16 History amLODIPine [Norvasc] 10 mg PO DAILY 12/02/16 12/02/16 12/02/16 History Acetaminophen [Acetaminophen TAB] 500 mg PO Q6HR PRN #30 tablet 03/28/17 Unknown Rx Neomycn/Bacitrc/Polymyx/Pramox 28 gm TP BID #1 oint...g. 03/28/17 Unknown Rx [Triple Antibioti-Pain Rlf Oint] Sennosides/Docusate Sodium 1 each PO BID #30 tablet 07/05/20 Unknown Rx [Senna-S 8.6-50 mg Tablet] Insulin NPH Hum/Reg Insulin Hm 35 unit SQ BID #1 vial 09/29/20 Unknown Rx [HumuLIN 70-30 Vial] ED Physical Exam - General Limitations: No Limitations General appearance: alert, in no apparent distress - Head Head exam: Present: atraumatic, normocephalic - Eye Eye exam: Present: normal appearance - ENT ENT exam: Present: mucous membranes moist - Respiratory Respiratory exam: Present: normal lung sounds bilaterally. Absent: respiratory distress, wheezes, rales, rhonchi, stridor, chest wall tenderness, accessory muscle use, decreased breath sounds, prolonged expiratory - Cardiovascular Cardiovascular Exam: Present: regular rate, normal rhythm, normal heart sounds. Absent: systolic murmur, diastolic murmur, rubs, gallop - Neurological Exam Neurological exam: Present: alert, oriented X3 - Psychiatric Psychiatric exam: Present: normal affect, normal mood - Skin Skin exam: Present: warm, dry, intact ED Course Vital Signs 09/29/20 09/29/20 13:03 18:50 Temperature 97.7 F 97.4 F L Pulse Rate 62 83 Respiratory 20 16 Rate Blood Pressure 144/75 Blood Pressure 149/79 [Right] O2 Sat by Pulse 95 96 Oximetry ED Medical Decision Making - Lab Data Result diagrams: 09/29/20 15:43 09/29/20 15:43 Lab Results 09/29/20 09/29/20 09/29/20 Range/Units 15:43 15:43 15:43 WBC 12.0 H (4.5-11.0) K/mm3 RBC 4.66 (3.65-5.03) M/mm3 Hgb 14.7 (11.8-15.2) gm/dl Hct 43.0 (35.5-45.6) % MCV 92 (84-94) fl MCH 32 (28-32) pg MCHC 34 (32-34) % RDW 13.9 (13.2-15.2) % Plt Count 233 (140-440) K/mm3 Lymph % (Auto) 26.6 (13.4-35.0) % [place] % (Auto) 8.6 H (0.0-7.3) % Eos % (Auto) 3.6 (0.0-4.3) % Baso % (Auto) 1.0 (0.0-1.8) % Lymph # (Auto) 3.2 (1.2-5.4) K/mm3 [place] # (Auto) 1.0 H (0.0-0.8) K/mm3 Eos # (Auto) 0.4 (0.0-0.4) K/mm3 Baso # (Auto) 0.1 (0.0-0.1) K/mm3 Seg Neutrophils % 60.2 (40.0-70.0) % Seg Neutrophils # 7.2 (1.8-7.7) K/mm3 VBG pH 7.398 (7.320-7.420) Sodium 132 L (137-145) mmol/L Potassium 4.5 (3.6-5.0) mmol/L Chloride 95.2 L (98-107) mmol/L Carbon Dioxide 27 (22-30) mmol/L Anion Gap 14 mmol/L BUN 18 (9-20) mg/dL Creatinine 0.9 (0.8-1.3) mg/dL Estimated GFR > 60 ml/min BUN/Creatinine Ratio 20 % Glucose 358 H (75-100) mg/dL POC Glucose (70-105) mg/dL Calcium 9.6 (8.4-10.2) mg/dL Total Bilirubin 0.60 (0.1-1.2) mg/dL AST 20 (5-40) units/L ALT 16 (7-56) units/L Alkaline Phosphatase 114 (35-129) units/L Total Protein 7.8 (6.3-8.2) g/dL Albumin 4.4 (3.9-5) g/dL Albumin/Globulin Ratio 1.3 % 12/20/20 Range/Units 18:28 WBC (4.5-11.0) K/mm3 RBC (3.65-5.03) M/mm3 Hgb (11.8-15.2) gm/dl Hct (35.5-45.6) % MCV (84-94) fl MCH (28-32) pg MCHC (32-34) % RDW (13.2-15.2) % Plt Count (140-440) K/mm3 Lymph % (Auto) (13.4-35.0) % [place] % (Auto) (0.0-7.3) % Eos % (Auto) (0.0-4.3) % Baso % (Auto) (0.0-1.8) % Lymph # (Auto) (1.2-5.4) K/mm3 [place] # (Auto) (0.0-0.8) K/mm3 Eos # (Auto) (0.0-0.4) K/mm3 Baso # (Auto) (0.0-0.1) K/mm3 Seg Neutrophils % (40.0-70.0) % Seg Neutrophils # (1.8-7.7) K/mm3 VBG pH (7.320-7.420) Sodium (137-145) mmol/L Potassium (3.6-5.0) mmol/L Chloride (98-107) mmol/L Carbon Dioxide (22-30) mmol/L Anion Gap mmol/L BUN (9-20) mg/dL Creatinine (0.8-1.3) mg/dL Estimated GFR ml/min BUN/Creatinine Ratio % Glucose (75-100) mg/dL POC Glucose 275 H (70-105) mg/dL Calcium (8.4-10.2) mg/dL Total Bilirubin (0.1-1.2) mg/dL AST (5-40) units/L ALT (7-56) units/L Alkaline Phosphatase (35-129) units/L Total Protein (6.3-8.2) g/dL Albumin (3.9-5) g/dL Albumin/Globulin Ratio % Vital Signs 09/29/20 09/29/20 13:03 18:50 Temperature 97.7 F 97.4 F L Pulse Rate 62 83 Respiratory 20 16 Rate Blood Pressure 144/75 Blood Pressure 149/79 [Right] O2 Sat by Pulse 95 96 Oximetry - Medical Decision Making pt is an 85 yo male who states he has been having hyperglycemia for a month states that his insulin went bad and he has not had any insulin, he states that he accidentally froze it because his refrigerator became too cold states he takes 70/30 and takes 30-40 units BID no fever, v/d, SOB, CP, cough He denies any other complaints Vitals are stable. labs with mild dehydration and elevated BG of 358. pt states he does not want an IV for IVF and IV insulin. pt given insulin subcutaneous. given 8 units of subcutaneous insulin. pts repeat BG is 275. pt given refill of his home medication. advised pt Please use medication as prescribed. Please eat a diabetic healthy diet. Please check your blood glucose frequently. Follow- up with your primary care doctor. It is very important that you follow-up for management of your chronic condition. Return to emergency room for any worsening symptoms. Critical care attestation.: If time is entered above; I have spent that time in minutes in the direct care of this critically ill patient, excluding procedure time. ED Disposition Clinical Impression: Hyperglycemia, Medication refill Disposition: DC-01 TO HOME OR SELFCARE Is pt being admited?: No Does the pt Need Aspirin: No Condition: Stable Instructions: Hyperglycemia, [id number] Additional Instructions: Please use medication as prescribed. Please eat a diabetic healthy diet. Please check your blood glucose frequently. Follow-up with your primary care doctor. It is very important that you follow-up for management of your chronic condition. Return to emergency room for any worsening symptoms. Prescriptions: Insulin NPH Hum/Reg Insulin Hm [HumuLIN 70-30 Vial] 35 unit SQ BID #1 vial Referrals: LACEY BOOTHE MD [Primary Care Provider] - 2-3 Days Time of Disposition: 18:31 Print Language: ITALIAN
[2020-09-29 18:50] VITALS: BP 149/79
== END 2020-09-29 18:51 | disposition home or self-care (01) ==
LOC: ED 12:35
DX: E11.65 Type 2 diabetes mellitus with hyperglycemia (principal); I10 Essential (primary) hypertension; J44.9 Chronic obstructive pulmonary disease, unspecified; Z76.0 Encounter for issue of repeat prescription; Z98.890 Other specified postprocedural states; Z79.4 Long term (current) use of insulin; Z79.899 Other long term (current) drug therapy; Z88.8 Allergy status to other drugs, medicaments and biological substances
CPT/HCPCS: 36415; 80053; 82805; 82962; 85025; J1815

== ENCOUNTER 2021-04-15 12:11 | Emergency (ER) | payer MEDICARE ==
--- NOTE | 2021-04-15 16:25 | Emergency Department Report ---
- General Chief complaint: Skin/Abscess/Foreign Body Stated complaint: TICK BITE Time Seen by Provider: 04/15/21 16:21 Source: patient Mode of arrival: Ambulatory Limitations: No Limitations - History of Present Illness Initial comments: Patient is an 86-year-old male who presents emergency room complaints of a tick bite that occurred approximately a week ago. He states that he pulled it off and burned it himself. He reports he believes he was able to remove it completely. He states that he started noticing some redness around the site. He denies any fever, drainage, vomiting, diarrhea, chills, fatigue. PMHx COPD, DM, HTN, afib, bypass. allergy: clonidine, aspirin, sulfa. - Related Data Home Medications Medication Instructions Recorded Confirmed Last Taken Gabapentin [Neurontin] 300 mg PO BID 12/02/16 12/02/16 12/01/16 HYDROcodone/APAP 7.5-325 [[place] 1 each PO Q6HR PRN 12/02/16 12/02/16 11/29/16 7.5/325] Metoprolol Xl [Metoprolol 100 mg PO QDAY 12/02/16 12/02/16 12/02/16 SUCCINATE ER TAB] Pregabalin [Lyrica] 75 mg PO BID 12/02/16 12/02/16 12/01/16 Simvastatin (NF) [Zocor TAB] 40 mg PO QHS 12/02/16 12/02/16 12/01/16 Valsartan [Diovan] 320 mg PO QDAY 12/02/16 12/02/16 12/02/16 amLODIPine [Norvasc] 10 mg PO DAILY 12/02/16 12/02/16 12/02/16 Previous Rx's Medication Instructions Recorded Last Taken Type Clopidogrel [Plavix] 75 mg PO QDAY #30 tablet 12/02/16 Unknown Rx Acetaminophen [Acetaminophen TAB] 500 mg PO Q6HR PRN #30 tablet 03/28/17 Unknown Rx Neomycn/Bacitrc/Polymyx/Pramox 28 gm TP BID #1 oint...g. 03/28/17 Unknown Rx [Triple Antibioti-Pain Rlf Oint] Sennosides/Docusate Sodium 1 each PO BID #30 tablet 07/05/20 Unknown Rx [Senna-S 8.6-50 mg Tablet] Insulin NPH Hum/Reg Insulin Hm 35 unit SQ BID #1 vial 09/29/20 Unknown Rx [HumuLIN 70-30 Vial] Doxycycline Hyclate [Doxycycline 100 mg PO BID 10 Days #20 tab 04/15/21 Unknown Rx Hyclate TAB] Allergies Allergy/AdvReac Type Severity Reaction Status Date / Time clonidine Allergy Unknown Verified 12/02/16 08:23 aspirin AdvReac Unknown Verified 12/02/16 08:23 ALL SULFA DRUGS Allergy Unknown Rash Uncoded 12/02/16 07:18 Abscess Boil HPI - HPI Chief Complaint: Skin/Abscess/Foreign Body Stated Complaint: TICK BITE Time Seen by Provider: 04/15/21 16:21 Home Medications: Home Medications Medication Instructions Recorded Confirmed Last Taken Gabapentin [Neurontin] 300 mg PO BID 12/02/16 12/02/16 12/01/16 HYDROcodone/APAP 7.5-325 [[place] 1 each PO Q6HR PRN 12/02/16 12/02/16 11/29/16 7.5/325] Metoprolol Xl [Metoprolol 100 mg PO QDAY 12/02/16 12/02/16 12/02/16 SUCCINATE ER TAB] Pregabalin [Lyrica] 75 mg PO BID 12/02/16 12/02/16 12/01/16 Simvastatin (NF) [Zocor TAB] 40 mg PO QHS 12/02/16 12/02/16 12/01/16 Valsartan [Diovan] 320 mg PO QDAY 12/02/16 12/02/16 12/02/16 amLODIPine [Norvasc] 10 mg PO DAILY 12/02/16 12/02/16 12/02/16 Previous Rx's Medication Instructions Recorded Last Taken Type Clopidogrel [Plavix] 75 mg PO QDAY #30 tablet 12/02/16 Unknown Rx Acetaminophen [Acetaminophen TAB] 500 mg PO Q6HR PRN #30 tablet 03/28/17 Unknown Rx Neomycn/Bacitrc/Polymyx/Pramox 28 gm TP BID #1 oint...g. 03/28/17 Unknown Rx [Triple Antibioti-Pain Rlf Oint] Sennosides/Docusate Sodium 1 each PO BID #30 tablet 07/05/20 Unknown Rx [Senna-S 8.6-50 mg Tablet] Insulin NPH Hum/Reg Insulin Hm 35 unit SQ BID #1 vial 09/29/20 Unknown Rx [HumuLIN 70-30 Vial] Doxycycline Hyclate [Doxycycline 100 mg PO BID 10 Days #20 tab 04/15/21 Unknown Rx Hyclate TAB] Allergies/Adverse Reactions: Allergies Allergy/AdvReac Type Severity Reaction Status Date / Time clonidine Allergy Unknown Verified 12/02/16 08:23 aspirin AdvReac Unknown Verified 12/02/16 08:23 ALL SULFA DRUGS Allergy Unknown Rash Uncoded 12/02/16 07:18 ED Review of Systems ROS: Stated complaint: TICK BITE Other details as noted in HPI Comment: All other systems reviewed and negative ED Past Medical Hx - Past Medical History Previous Medical History?: Yes Hx Hypertension: Yes Hx Diabetes: Yes (II) Hx Kidney Stones: Yes Hx COPD: Yes Additional medical history: 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, a-fib - Surgical History Hx Open Heart Surgery: Yes (vessel Quadruple bypass) - Social History Smoking Status: Never Smoker Substance Use Type: None - Medications Home Medications: Home Medications Medication Instructions Recorded Confirmed Last Taken Type Clopidogrel [Plavix] 75 mg PO QDAY #30 tablet 12/02/16 Unknown Rx Gabapentin [Neurontin] 300 mg PO BID 12/02/16 12/02/16 12/01/16 History HYDROcodone/APAP 7.5-325 [[place] 1 each PO Q6HR PRN 12/02/16 12/02/16 11/29/16 History 7.5/325] Metoprolol Xl [Metoprolol 100 mg PO QDAY 12/02/16 12/02/16 12/02/16 History SUCCINATE ER TAB] Pregabalin [Lyrica] 75 mg PO BID 12/02/16 12/02/16 12/01/16 History Simvastatin (NF) [Zocor TAB] 40 mg PO QHS 12/02/16 12/02/16 12/01/16 History Valsartan [Diovan] 320 mg PO QDAY 12/02/16 12/02/16 12/02/16 History amLODIPine [Norvasc] 10 mg PO DAILY 12/02/16 12/02/16 12/02/16 History Acetaminophen [Acetaminophen TAB] 500 mg PO Q6HR PRN #30 tablet 03/28/17 Unknown Rx Neomycn/Bacitrc/Polymyx/Pramox 28 gm TP BID #1 oint...g. 03/28/17 Unknown Rx [Triple Antibioti-Pain Rlf Oint] Sennosides/Docusate Sodium 1 each PO BID #30 tablet 07/05/20 Unknown Rx [Senna-S 8.6-50 mg Tablet] Insulin NPH Hum/Reg Insulin Hm 35 unit SQ BID #1 vial 09/29/20 Unknown Rx [HumuLIN 70-30 Vial] Doxycycline Hyclate [Doxycycline 100 mg PO BID 10 Days #20 tab 04/15/21 Unknown Rx Hyclate TAB] ED Physical Exam - General Limitations: No Limitations General appearance: alert, in no apparent distress - Head Head exam: Present: atraumatic, normocephalic - Eye Eye exam: Present: normal appearance - ENT ENT exam: Present: mucous membranes moist - Respiratory Respiratory exam: Absent: respiratory distress, accessory muscle use - Neurological Exam Neurological exam: Present: alert, oriented X3 - Psychiatric Psychiatric exam: Present: normal affect, normal mood - Skin Skin exam: Present: warm, dry, other (there is a 5 cm area of erythema present to the right lower leg just above the ankle, no fluctuance, no drainage, no blistering, no necrosis, neurovascularly intact) ED Course Vital Signs 04/15/21 04/15/21 12:48 16:41 Temperature 98.2 F Pulse Rate 64 65 Respiratory 20 18 Rate Blood Pressure 143/65 Blood Pressure 115/66 [Right] O2 Sat by Pulse 93 97 Oximetry ED Medical Decision Making - Lab Data Vital Signs 04/15/21 04/15/21 12:48 16:41 Temperature 98.2 F Pulse Rate 64 65 Respiratory 20 18 Rate Blood Pressure 143/65 Blood Pressure 115/66 [Right] O2 Sat by Pulse 93 97 Oximetry - Medical Decision Making Patient is an 86-year-old male who presents emergency room complaints of a tick bite that occurred approximately a week ago. He states that he pulled it off a nd burned it himself. He reports he believes he was able to remove it completely. He states that he started noticing some redness around the site. He denies any fever, drainage, vomiting, diarrhea, chills, fatigue. PMHx COPD, DM, HTN, afib, bypass. allergy: clonidine, aspirin, sulfa. vss. on exam: there is a 5 cm area of erythema present to the right lower leg just above the ankle, no fluctuance, no drainage, no blistering, no necrosis, neurovascularly intact. symptoms could be related to cellulitis vs could be erythema migrans vs localized reaction. no signs of abscess or ulceration. pt will be referred to infectious disease. given prescription for doxycycline. advised pt and pts son Please take medication as prescribed. Please follow-up with your primary care doctor. Please follow-up with infectious disease doctor. Return to emergency room immediately for any new or worsening symptoms including but not limited to worsening swelling, worsening redness, fever, chills, vomiting, drainage, etc. Critical care attestation.: If time is entered above; I have spent that time in minutes in the direct care of this critically ill patient, excluding procedure time. ED Disposition Clinical Impression: Tick bite Qualifiers: Encounter type: initial encounter Site of tick bite: lower leg Laterality: right Qualified Code(s): S80.861A - Insect bite (nonvenomous), right lower leg, initial encounter Disposition: TO HOME OR SELFCARE Is pt being admited?: No Does the pt Need Aspirin: No Condition: Stable Instructions: Tick Bite Information, Adult Additional Instructions: Please take medication as prescribed. Please follow-up with your primary care doctor. Please follow-up with infectious disease doctor. Return to emergency room immediately for any new or worsening symptoms including but not limited to worsening swelling, worsening redness, fever, chills, vomiting, drainage, etc. Prescriptions: Doxycycline Hyclate [Doxycycline Hyclate TAB] 100 mg PO BID 10 Days #20 tab Referrals: MAHIN MEYER MD [Staff Physician] - 2-3 Days your, primary care doctor [Other] - 2-3 Days Time of Disposition: 16:24 Print Language: SUDANESE
[2021-04-15 16:42] VITALS: BP 115/66
== END 2021-04-15 16:42 | disposition home or self-care (01) ==
LOC: ED 12:11
DX: S80.861A Insect bite (nonvenomous), right lower leg, initial encounter (principal); I10 Essential (primary) hypertension; E11.9 Type 2 diabetes mellitus without complications; J44.9 Chronic obstructive pulmonary disease, unspecified; Z98.890 Other specified postprocedural states; Z79.4 Long term (current) use of insulin; Z79.899 Other long term (current) drug therapy; Z88.8 Allergy status to other drugs, medicaments and biological substances; W57.XXXA Bitten or stung by nonvenomous insect and other nonvenomous arthropods, initial encounter; Y93.89 Activity, other specified; Y92.89 Other specified places as the place of occurrence of the external cause; Y99.8 Other external cause status
CPT/HCPCS: 99281

== ENCOUNTER 2022-06-18 15:18 | Emergency (ER) | payer MEDICARE ==
[2022-06-18] MEDS ORDERED: SODIUM CHLORIDE 0.9% 1000 ML 1,000 ML IV ONE (16:14)
[2022-06-18] MEDS ORDERED: INSULIN REGULAR, HUMAN 100 UNITS/1 ML IV ONE (16:33)
--- NOTE | 2022-06-18 16:34 | Emergency Department Report ---
ED General Adult HPI - General Chief complaint: Hyperglycemia Stated complaint: HYPERGLYCEMIA Time Seen by Provider: 06/18/22 15:40 Source: patient, EMS Mode of arrival: Stretcher Limitations: No Limitations - History of Present Illness Initial comments: Patient presents to the emergency department the chief complaint of elevated glucose levels. Patient states he was at [facility] and began to feel weak with concern bystanders called EMS. Upon EMS arrival the patient's glucose level was elevated and was not able to be register on their glucometer. Patient states he supposed to take 2 shots of insulin daily but only takes 1 for the last 2 months. Patient denies any chest pain, shortness breath, or headache. -: Sudden Severity scale (0 -10): 0 Consistency: constant Improves with: none Worsens with: none Associated Symptoms: denies other symptoms Treatments Prior to Arrival: none - Related Data Home Medications Medication Instructions Recorded Confirmed Last Taken Gabapentin [Neurontin] 300 mg PO BID 12/02/16 12/02/16 12/01/16 HYDROcodone/APAP 7.5-325 [[place] 1 each PO Q6HR PRN 12/02/16 12/02/16 11/29/16 7.5/325] Metoprolol Xl [Metoprolol 100 mg PO QDAY 12/02/16 12/02/16 12/02/16 SUCCINATE ER TAB] Pregabalin [Lyrica] 75 mg PO BID 12/02/16 12/02/16 12/01/16 Simvastatin (NF) [Zocor TAB] 40 mg PO QHS 12/02/16 12/02/16 12/01/16 Valsartan [Diovan] 320 mg PO QDAY 12/02/16 12/02/16 12/02/16 amLODIPine [Norvasc] 10 mg PO DAILY 12/02/16 12/02/16 12/02/16 Previous Rx's Medication Instructions Recorded Last Taken Type Clopidogrel [Plavix] 75 mg PO QDAY #30 tablet 12/02/16 Unknown Rx Acetaminophen [Acetaminophen TAB] 500 mg PO Q6HR PRN #30 tablet 03/28/17 Unknown Rx Neomycn/Bacitrc/Polymyx/Pramox 28 gm TP BID #1 oint...g. 03/28/17 Unknown Rx [Triple Antibioti-Pain Rlf Oint] Sennosides/Docusate Sodium 1 each PO BID #30 tablet 07/05/20 Unknown Rx [Senna-S 8.6-50 mg Tablet] Insulin NPH Hum/Reg Insulin Hm 35 unit SQ BID #1 vial 09/29/20 Unknown Rx [HumuLIN 70-30 Vial] Doxycycline Hyclate [Doxycycline 100 mg PO BID 10 Days #20 tab 04/15/21 Unknown Rx Hyclate TAB] Allergies Allergy/AdvReac Type Severity Reaction Status Date / Time clonidine Allergy Unknown Verified 06/18/22 15:27 aspirin AdvReac Unknown Verified 06/18/22 15:27 ALL SULFA DRUGS Allergy Unknown Rash Uncoded 06/18/22 15:27 ED Review of Systems ROS: Stated complaint: HYPERGLYCEMIA Other details as noted in HPI Comment: All other systems reviewed and negative Constitutional: denies: chills, fever Eyes: denies: eye pain, eye discharge, vision change ENT: denies: ear pain, throat pain Respiratory: denies: cough, shortness of breath, wheezing Cardiovascular: denies: chest pain, palpitations Endocrine: no symptoms reported Gastrointestinal: denies: abdominal pain, nausea, diarrhea Genitourinary: denies: urgency, dysuria Musculoskeletal: denies: back pain, joint swelling, arthralgia Skin: denies: rash, lesions Neurological: denies: headache, weakness, paresthesias Psychiatric: denies: anxiety, depression Hematological/Lymphatic: denies: easy bleeding, easy bruising ED Past Medical Hx - Past Medical History Hx Hypertension: Yes Hx Diabetes: Yes (II) Hx Kidney Stones: Yes Hx COPD: Yes Additional medical history: 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, a-fib - Surgical History Past Surgical History?: Yes Hx Open Heart Surgery: Yes (vessel Quadruple bypass) Additional Surgical History: prostate gland - Social History Smoking Status: Former Smoker Substance Use Type: None - Medications Home Medications: Home Medications Medication Instructions Recorded Confirmed Last Taken Type Clopidogrel [Plavix] 75 mg PO QDAY #30 tablet 12/02/16 Unknown Rx Gabapentin [Neurontin] 300 mg PO BID 12/02/16 12/02/16 12/01/16 History HYDROcodone/APAP 7.5-325 [[place] 1 each PO Q6HR PRN 12/02/16 12/02/16 11/29/16 History 7.5/325] Metoprolol Xl [Metoprolol 100 mg PO QDAY 12/02/16 12/02/16 12/02/16 History SUCCINATE ER TAB] Pregabalin [Lyrica] 75 mg PO BID 12/02/16 12/02/16 12/01/16 History Simvastatin (NF) [Zocor TAB] 40 mg PO QHS 12/02/16 12/02/16 12/01/16 History Valsartan [Diovan] 320 mg PO QDAY 12/02/16 12/02/16 12/02/16 History amLODIPine [Norvasc] 10 mg PO DAILY 12/02/16 12/02/16 12/02/16 History Acetaminophen [Acetaminophen TAB] 500 mg PO Q6HR PRN #30 tablet 03/28/17 Unknown Rx Neomycn/Bacitrc/Polymyx/Pramox 28 gm TP BID #1 oint...g. 03/28/17 Unknown Rx [Triple Antibioti-Pain Rlf Oint] Sennosides/Docusate Sodium 1 each PO BID #30 tablet 07/05/20 Unknown Rx [Senna-S 8.6-50 mg Tablet] Insulin NPH Hum/Reg Insulin Hm 35 unit SQ BID #1 vial 09/29/20 Unknown Rx [HumuLIN 70-30 Vial] Doxycycline Hyclate [Doxycycline 100 mg PO BID 10 Days #20 tab 04/15/21 Unknown Rx Hyclate TAB] ED Physical Exam - General Limitations: No Limitations General appearance: alert, in no apparent distress - Head Head exam: Present: atraumatic, normocephalic - Eye Eye exam: Present: normal appearance, PERRL, EOMI - ENT ENT exam: Present: mucous membranes moist - Neck Neck exam: Present: normal inspection - Respiratory Respiratory exam: Present: normal lung sounds bilaterally. Absent: respiratory distress - Cardiovascular Cardiovascular Exam: Present: regular rate, normal rhythm. Absent: systolic murmur, diastolic murmur, rubs, gallop - GI/Abdominal GI/Abdominal exam: Present: soft, normal bowel sounds. Absent: distended, tenderness - Rectal Rectal exam: Present: deferred - Extremities Exam Extremities exam: Present: normal inspection - Back Exam Back exam: Present: normal inspection - Neurological Exam Neurological exam: Present: alert, oriented X3, CN II-XII intact. Absent: motor sensory deficit - Psychiatric Psychiatric exam: Present: normal affect, normal mood - Skin Skin exam: Present: warm, dry, intact, normal color. Absent: rash ED Course Vital Signs 06/18/22 06/18/22 06/18/22 15:19 16:00 16:01 Temperature 98.0 F 98.2 F Pulse Rate 84 101 H 81 Respiratory 18 16 Rate Blood Pressure Blood Pressure 140/80 [Left] O2 Sat by Pulse 98 95 Oximetry 06/18/22 06/18/22 06/18/22 16:07 16:31 17:01 Temperature Pulse Rate 77 79 Respiratory 15 17 Rate Blood Pressure 124/72 117/69 Blood Pressure [Left] O2 Sat by Pulse 95 91 89 Oximetry 06/18/22 06/18/22 06/18/22 17:31 18:01 18:31 Temperature Pulse Rate 64 68 70 Respiratory 15 13 14 Rate Blood Pressure 117/69 106/76 106/76 Blood Pressure [Left] O2 Sat by Pulse 91 88 97 Oximetry ED Medical Decision Making - Lab Data Result diagrams: 06/18/22 16:30 06/18/22 16:30 Lab Results 06/18/22 06/18/22 06/18/22 Range/Units 16:13 16:30 16:30 WBC 19.8 H (4.5-11.0) K/mm3 RBC 4.23 (3.65-5.03) M/mm3 Hgb 13.0 (11.8-15.2) gm/dl Hct 39.0 (35.5-45.6) % MCV 92 (84-94) fl MCH 31 (28-32) pg MCHC 33 (32-34) % RDW 15.1 (13.2-15.2) % Plt Count 163 (140-440) K/mm3 Lymph % (Auto) 5.9 L (13.4-35.0) % [place] % (Auto) 7.0 (0.0-7.3) % Eos % (Auto) 0.0 (0.0-4.3) % Baso % (Auto) 0.1 (0.0-1.8) % Lymph # (Auto) 1.2 (1.2-5.4) K/mm3 [place] # (Auto) 1.4 H (0.0-0.8) K/mm3 Eos # (Auto) 0.0 (0.0-0.4) K/mm3 Baso # (Auto) 0.0 (0.0-0.1) K/mm3 Seg Neutrophils % 87.0 H (40.0-70.0) % Seg Neutrophils # 17.2 H (1.8-7.7) K/mm3 Sodium 128 L (137-145) mmol/L Potassium 4.3 (3.6-5.0) mmol/L Chloride 93.3 L (98-107) mmol/L Carbon Dioxide 23 (22-30) mmol/L Anion Gap 16 mmol/L BUN 26 H (9-20) mg/dL Creatinine 0.9 (0.8-1.3) mg/dL Estimated GFR > 60 ml/min BUN/Creatinine Ratio 29 % Glucose 477 H (75-100) mg/dL POC Glucose 476 H (70-105) mg/dL Calcium 9.2 (8.4-10.2) mg/dL - Medical Decision Making Upon further discussion it was revealed that the patient was treated for sinus infection yesterday with antibiotics and steroid shot. The administration of steroids yesterday are likely the cause of the patient's hyperglycemia and elevated white count The patient was given IV insulin Critical Care Time: Yes Critical care time in (mins) excluding proc time.: 35 Critical care attestation.: If time is entered above; I have spent that time in minutes in the direct care of this critically ill patient, excluding procedure time. ED Disposition Clinical Impression: Hyperglycemia Disposition: 01 HOME / SELF CARE / HOMELESS Is pt being admited?: No Does the pt Need Aspirin: No Condition: Stable Instructions: Hyperglycemia Additional Instructions: Return if worse Referrals: SANTO WHITMAN MD [Staff Physician] - 3-5 Days Time of Disposition: 19:28
[2022-06-18 17:26] LABS: Basophils % (Auto) 0.1 % (0.0-1.8); Lymphocytes # (Auto) 1.2 K/mm3 (1.2-5.4); Lymphocytes % (Auto) 5.9 % (13.4-35.0); Mean Corpuscular HGB Conc 33 % (32-34); Mean Corpuscular Volume 92 fl (84-94); Monocytes # (Auto) 1.4 K/mm3 (0.0-0.8); Platelet Count 163 K/mm3 (140-440); Red Blood Count 4.23 M/mm3 (3.65-5.03); Red Cell Distribution Width 15.1 % (13.2-15.2)
[2022-06-18 17:45] LABS: BUN/Creatinine Ratio 29; Blood Urea Nitrogen 26 mg/dL (9-20); Calcium 9.2 mg/dL (8.4-10.2); Hemolysis Index 34
[2022-06-18 18:52] VITALS: BP 106/76
== END 2022-06-18 20:27 | disposition home or self-care (01) ==
LOC: ED 15:18
DX: E11.65 Type 2 diabetes mellitus with hyperglycemia (principal); I10 Essential (primary) hypertension; N20.0 Calculus of kidney; J44.1 Chronic obstructive pulmonary disease with (acute) exacerbation; Z88.8 Allergy status to other drugs, medicaments and biological substances; Z91.09 Other allergy status, other than to drugs and biological substances; Z98.890 Other specified postprocedural states; Z87.891 Personal history of nicotine dependence; Z79.899 Other long term (current) drug therapy
CPT/HCPCS: 36415; 80048; 82962; 85025; 96361; 96374; 99284; J7030; Q9967; J1815

== ENCOUNTER 2022-07-03 08:27 | Inpatient (IN) | payer MEDICARE, MEDICAID ==
[2022-07-03 10:06] LABS: Basophils % (Auto) 0.2 % (0.0-1.8); Hematocrit 39.1 % (35.5-45.6); Hemoglobin 12.9 gm/dl (11.8-15.2); Lymphocytes # (Auto) 0.8 K/mm3 (1.2-5.4); Mean Corpuscular HGB Conc 33 % (32-34); Mean Corpuscular Volume 91 fl (84-94); Monocytes # (Auto) 1.2 K/mm3 (0.0-0.8); Monocytes % (Auto) 7.2 % (0.0-7.3); Platelet Count 210 K/mm3 (140-440); Red Blood Count 4.28 M/mm3 (3.65-5.03); Red Cell Distribution Width 14.5 % (13.2-15.2)
[2022-07-03 10:18] LABS: Albumin 3.7 g/dL (3.9-5); Calcium 8.5 mg/dL (8.4-10.2)
[2022-07-03 14:50] LABS: Color,Urine Amber (Yellow)
[2022-07-03 14:55] LABS: Mucus,Urine FEW /HPF
[2022-07-03 15:31] LABS: Ictotest,Urine 1.035 (Negative)
[2022-07-03 15:32] LABS: Bilirubin,Urine NEG (Negative); Blood,Urine MOD (Negative)
[2022-07-03 15:39] LABS: Protein,Urine >500 mg/dL (Negative)
[2022-07-04 01:45] LABS: Hemoglobin 12.5 gm/dl (11.8-15.2); Mean Corpuscular HGB Conc 32 % (32-34); Mean Corpuscular Volume 92 fl (84-94); Platelet Count 251 K/mm3 (140-440); Red Blood Count 4.27 M/mm3 (3.65-5.03); Red Cell Distribution Width 15.3 % (13.2-15.2)
--- NOTE | 2022-07-04 02:08 | XRay Report ---
CHEST 1 VIEW 07/04/2022 1:56 AM INDICATION / CLINICAL INFORMATION: Shortness of breath. COMPARISON: None available. FINDINGS: SUPPORT DEVICES: None. HEART / MEDIASTINUM: Cardiomegaly and central pulmonary venous congestion. Surgical change from prior median sternotomy. LUNGS / PLEURA: Hazy left perihilar opacities suggestive of mild perihilar edema. No lobar consolidat ion or significant pleural effusion identified. No pneumothorax. ADDITIONAL FINDINGS: None IMPRESSION: 1. Features of chronic CHF with cardiomegaly and central pulmonary venous congestion. Suspected mild left perihilar edema without other acute chest process. Signer Name: Yves Barth MD Signed: 07/04/2022 2:04 AM Workstation Name: [email or web address]
[2022-07-04 02:22] LABS: Calcium 8.7 mg/dL (8.4-10.2)
--- NOTE | 2022-07-04 02:25 | Cat Scan Report ---
CT ABDOMEN AND PELVIS WITHOUT CONTRAST INDICATION / CLINICAL INFORMATION: abd pain, constipation, dysuria, leukocytosis. TECHNIQUE: Axial CT images were obtained through the abdomen and pelvis without IV contrast. All CT scans at this location are performed using CT dose reduction for ALARA by means of automated exposure control. COMPARISON: None available. FINDINGS: LOWER CHEST: Asymmetric left lower lobe alveolar infiltrates, which are more apparent than on the [place] or chest radiograph. This may represent asymmetric edema or pneumonia. Small left-sided pleural effus ion with trace posterior layering pleural effusion component and fluid within the left fissure. Mild cardiomegaly. The right lung base is clear. LIVER: No significant abnormality. GALLBLADDER/BILIARY: Multiple calcified gallstones. There is also a small hyperdense lesion within th e region of the distal common bile duct concerning for choledocholithiasis. Please see the saved ramirez image on [employer] PACS. Mild common bile duct dilation measuring 7 mm without significant intrahepa tic biliary ductal dilation. PANCREAS: Diffuse atrophy without acute process. SPLEEN: No significant abnormality. ADRENALS: Stable small left adrenal adenoma. The right adrenal gland is unremarkable. KIDNEYS/URETERS: Bilateral senescent-type perinephric edema. No urolithiasis, hydronephrosis, suspici ous mass or other acute process. GI: Scattered colonic diverticulosis without evidence for acute diverticulitis. No other acute bowel inflammation, obstruction or evidence for ischemia. APPENDIX: No significant abnormality. PERITONEUM: Trace ascites. No pneumoperitoneum or loculated fluid collection. LYMPH NODES: No significant adenopathy. AORTA / ARTERIES: Moderate atherosclerotic calcification without acute abnormality. URINARY BLADDER: Mild bladder wall thickening for which correlation with urinalysis is recommended to exclude cystitis. REPRODUCTIVE ORGANS: Uterus is absent. No significant adnexal abnormality. SKELETAL SYSTEM: Lumbar degenerative spondylosis without acute or destructive osseous process. ADDITIONAL FINDINGS: None. IMPRESSION: 1. Cholelithiasis and choledocholithiasis. Mild biliary dilation without evidence for acute cholecyst itis. Further evaluation/treatment by ERCP may be warranted. 2. Left lower lobe alveolar infiltrates representing either asymmetric edema or pneumonia. Clinical c orrelation is needed. Small left pleural effusion with a trace layering component and partially locul ated intrafissural component. 3. Diffuse urinary bladder wall thickening for which correlation with urinalysis is recommended to ex clude acute cystitis. 4. Trace ascites and other chronic incidental findings, as detailed above. Signer Name: Yves Barth MD Signed: 07/04/2022 2:21 AM Workstation Name: [email or web address]
--- NOTE | 2022-07-04 03:10 | Emergency Department Report ---
ED General Adult HPI - General Chief complaint: Urogenital-Male Stated complaint: KIDNEY PAIN,ABD PAIN Time Seen by Provider: 07/04/22 01:42 Source: patient Mode of arrival: Wheelchair Limitations: Physical Limitation - History of Present Illness Initial comments: 87-year-old male with multiple medical history including diabetes, hypertension, CABG, CHF, CAD, presents to the emergency department Patient was brought in by his son who states he has been experiencing pain in his abdomen for "a while". However symptoms got worse in the last 2 days, has been having difficulty voiding and having a bowel movement. He describes his pain as crampy all over his abdomen, reports urinary urgency frequency but very decreased. Patient denies prior GI/ issues, however his son states otherwise. States he has previously been told that he has problems with his kidneys is currently not seeing a admissions coordinator ( From chart review patient has a history of kidney stones). Patient reports nausea, he denies vomiting, no chest pain, no fever chills, no bloody stools. Symptoms are worsened by nothing and improves with nothing. 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 Familia Jenkins-PCP - Related Data Home Medications Medication Instructions Recorded Confirmed Last Taken Gabapentin [Neurontin] 300 mg PO BID 12/02/16 12/02/16 12/01/16 HYDROcodone/APAP 7.5-325 [[place] 1 each PO Q6HR PRN 12/02/16 12/02/16 11/29/16 7.5/325] Metoprolol Xl [Metoprolol 100 mg PO QDAY 12/02/16 12/02/16 12/02/16 SUCCINATE ER TAB] Pregabalin [Lyrica] 75 mg PO BID 12/02/16 12/02/16 12/01/16 Simvastatin (NF) [Zocor TAB] 40 mg PO QHS 12/02/16 12/02/16 12/01/16 Valsartan [Diovan] 320 mg PO QDAY 12/02/16 12/02/16 12/02/16 amLODIPine [Norvasc] 10 mg PO DAILY 12/02/16 12/02/16 12/02/16 Previous Rx's Medication Instructions Recorded Last Taken Type Clopidogrel [Plavix] 75 mg PO QDAY #30 tablet 12/02/16 Unknown Rx Acetaminophen [Acetaminophen TAB] 500 mg PO Q6HR PRN #30 tablet 03/28/17 Unknown Rx Neomycn/Bacitrc/Polymyx/Pramox 28 gm TP BID #1 oint...g. 03/28/17 Unknown Rx [Triple Antibioti-Pain Rlf Oint] Sennosides/Docusate Sodium 1 each PO BID #30 tablet 07/05/20 Unknown Rx [Senna-S 8.6-50 mg Tablet] Insulin NPH Hum/Reg Insulin Hm 35 unit SQ BID #1 vial 09/29/20 Unknown Rx [HumuLIN 70-30 Vial] Doxycycline Hyclate [Doxycycline 100 mg PO BID 10 Days #20 tab 04/15/21 Unknown Rx Hyclate TAB] Allergies Allergy/AdvReac Type Severity Reaction Status Date / Time clonidine Allergy Unknown Verified 06/18/22 15:27 aspirin AdvReac Unknown Verified 06/18/22 15:27 ALL SULFA DRUGS Allergy Unknown Rash Uncoded 06/18/22 15:27 ED Review of Systems ROS: Stated complaint: KIDNEY PAIN,ABD PAIN Other details as noted in HPI Constitutional: denies: chills, fever Respiratory: shortness of breath, SOB with exertion. denies: cough, SOB at rest, wheezing Cardiovascular: dyspnea on exertion. denies: chest pain, palpitations Endocrine: denies: excessive sweating, intolerance to cold, intolerance to heat Gastrointestinal: abdominal pain. denies: nausea, vomiting Genitourinary: urgency, dysuria, frequency. 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, a-fib - Surgical History Hx Open Heart Surgery: Yes (vessel Quadruple bypass) Additional Surgical History: prostate gland - Social History Smoking Status: Former Smoker Substance Use Type: None - Medications Home Medications: Home Medications Medication Instructions Recorded Confirmed Last Taken Type Clopidogrel [Plavix] 75 mg PO QDAY #30 tablet 12/02/16 Unknown Rx Gabapentin [Neurontin] 300 mg PO BID 12/02/16 12/02/16 12/01/16 History HYDROcodone/APAP 7.5-325 [[place] 1 each PO Q6HR PRN 12/02/16 12/02/16 11/29/16 History 7.5/325] Metoprolol Xl [Metoprolol 100 mg PO QDAY 12/02/16 12/02/16 12/02/16 History SUCCINATE ER TAB] Pregabalin [Lyrica] 75 mg PO BID 12/02/16 12/02/16 12/01/16 History Simvastatin (NF) [Zocor TAB] 40 mg PO QHS 12/02/16 12/02/16 12/01/16 History Valsartan [Diovan] 320 mg PO QDAY 12/02/16 12/02/16 12/02/16 History amLODIPine [Norvasc] 10 mg PO DAILY 12/02/16 12/02/16 12/02/16 History Acetaminophen [Acetaminophen TAB] 500 mg PO Q6HR PRN #30 tablet 03/28/17 Unknown Rx Neomycn/Bacitrc/Polymyx/Pramox 28 gm TP BID #1 oint...g. 03/28/17 Unknown Rx [Triple Antibioti-Pain Rlf Oint] Sennosides/Docusate Sodium 1 each PO BID #30 tablet 07/05/20 Unknown Rx [Senna-S 8.6-50 mg Tablet] Insulin NPH Hum/Reg Insulin Hm 35 unit SQ BID #1 vial 09/29/20 Unknown Rx [HumuLIN 70-30 Vial] Doxycycline Hyclate [Doxycycline 100 mg PO BID 10 Days #20 tab 04/15/21 Unknown Rx Hyclate TAB] ED Physical Exam - General Limitations: Physical Limitation General appearance: alert (He is puny ill-appearing male), in no apparent distress, obese, other (Puny appearing male) - Head Head exam: Present: atraumatic - Eye Eye exam: Present: normal appearance - ENT ENT exam: Present: mucous membranes dry - Neck Neck exam: Present: normal inspection - Respiratory Respiratory exam: Present: decreased breath sounds (Posterior left lower). Absent: respiratory distress, wheezes, chest wall tenderness - Cardiovascular Cardiovascular Exam: Present: tachycardia - GI/Abdominal GI/Abdominal exam: Present: distended (Mildly distended), tenderness, normal bowel sounds. Absent: guarding, rebound, hyperactive bowel sounds (No peritoneal sign) - Extremities Exam Extremities exam: Present: normal inspection, full ROM, normal capillary refill. Absent: tenderness - Back Exam Back exam: Present: normal inspection, full ROM - Neurological Exam Neurological exam: Present: alert, oriented X3, normal gait - Psychiatric Psychiatric exam: Present: normal affect, normal mood - Skin Skin exam: Present: dry, intact (Pale) ED Course Vital Signs 07/03/22 07/04/22 07/04/22 08:53 02:35 02:39 Temperature 98.8 F Pulse Rate 117 H 122 H Respiratory 14 18 Rate Blood Pressure 109/74 Blood Pressure 100/75 [Left] O2 Sat by Pulse 96 94 95 Oximetry 07/04/22 07/04/22 07/04/22 02:46 03:00 03:16 Temperature Pulse Rate 138 H 132 H 139 H Respiratory 42 H 38 H 32 H Rate Blood Pressure 97/67 97/67 120/82 Blood Pressure [Left] O2 Sat by Pulse 99 99 99 Oximetry 07/04/22 07/04/22 07/04/22 04:40 04:46 05:00 Temperature Pulse Rate 82 113 H 167 H Respiratory 35 H 23 21 Rate Blood Pressure 93/64 93/64 Blood Pressure [Left] O2 Sat by Pulse 94 Oximetry 07/04/22 07/04/22 07/04/22 05:30 05:46 06:00 Temperature Pulse Rate 148 H 78 47 L Respiratory 20 61 H 0 L Rate Blood Pressure 93/64 122/68 Blood Pressure [Left] O2 Sat by Pulse 90 Oximetry - Reevaluation(s) Reevaluation #1: 07/04/22 0242 Based on his lab findings, CT, physical exam, I spoke with Dr. Schmitt the hospitalist to admit patient. He recommended that I call surgery as well. I have also spoken to the ED attending Dr. Bernal care critically ill patient [id number]-spoke with Dr. Wilkes the tape stringer at [facility], "cannot perform a ERCP until patient is stabilized, most likely septic due to cholangitis, will follow-up with patient, but he needs to be admitted to the ICU and stabilized first, continue to Zosyn which is a good antibiotic coverage". [id number] spoke with Dr. Crandall general surgeon who "cannot perform any procedure at this time, patient is to be stable first I agree with GI" I have called with the hospitalist Dr. Schmitt and informed him of all of this findings ED Medical Decision Making - Lab Data Result diagrams: 07/04/22 01:21 07/04/22 01:21 - Medical Decision Making 87-year-old male with multiple medical history including diabetes, hypertension, CABG, CHF, CAD, presents to the emergency department Patient was brought in by his son who states he has been experiencing pain in his abdomen for "a while". However symptoms got worse in the last 2 days, has been having difficulty voiding and having a bowel movement. He describes his pain as crampy all over his abdomen, reports urinary urgency frequency but very decreased. Patient denies prior GI/ issues, however his son states otherwise. States he has previously been told that he has problems with his kidneys is currently not seeing a admissions coordinator ( From chart review patient has a history of kidney stones). Patient reports nausea, he denies vomiting, no chest pain, no fever chills, no bloody stools. On initial evaluation of patient's lab findings from yesterday, concern for sepsis. Blood cultures ordered, further testing was ordered including CT, x- ray. Also ordered some antibiotics, as well as fluid resuscitation, 07/04/22 0242 Based on his lab findings, CT, physical exam, I spoke with Dr. Schmitt the hospitalist to admit patient. He recommended that I call surgery as well. I have also spoken to the ED attending Dr. Bernal care critically ill patient [id number]-spoke with Dr. Wilkes the tape stringer at [facility], "cannot perform a ERCP until patient is stabilized, most likely septic due to cholangitis, will follow-up with patient, but he needs to be admitted to the ICU and stabilized first, continue to Zosyn which is a good antibiotic coverage". [id number] spoke with Dr. Crandall general surgeon who "cannot perform any procedure at this time, patient is to be stable first I agree with GI" I have called with the hospitalist Dr. Schmitt and informed him of all of this findings. I have updated patient and his family regarding plan for admission, and patient agrees. Also informed the charge nurse patient is to be moved to the main ED where he could be monitored appropriately. Patient admitted for sepsis, cholelithiasis, choledocholithiasis abdominal pain, elevated liver enzymes, CHF, CAD hyponatremia, UTI, pneumonia, cholangitis, his condition is guarded, patient is critical. Started on broad-spectrum antibiotics, cardiac continuous cardiac monitoring, 2 large-bore IVs, IV fluid resuscitation, possible pressors if MAP drops below 60. Audio voice dictation device used, hence the chart might contain some dictation errors, mispronunciations, wrong spelling and wrong verbiage. Critical care attestation.: If time is entered above; I have spent that time in minutes in the direct care of this critically ill patient, excluding procedure time. ED Disposition Clinical Impression: Sepsis, Abdominal pain, CAD (coronary artery disease), Hx of CABG, Diabetes, UTI (urinary tract infection), Cholelithiasis with choledocholithiasis Disposition: ADMITTED INPATIENT Is pt being admited?: Yes Does the pt Need Aspirin: No Condition: Critical
[2022-07-04] MEDS: SODIUM CHLORIDE 0.9% 1000 ML 1,000 ML IV ONE ×3 (04:09→04:40)
[2022-07-04] MEDS: PIPERACIL/TAZOBACTA 4.5/NS 100 4.5 GM/100 ML VIAL IV ONE (04:09)
[2022-07-04] MEDS: cefTRIAXone/NS 1 GM/50 ML 1 GM/50 ML BAG IV ONE (04:41)
[2022-07-04] MEDS ORDERED: SUCCINYLCHOLINE CHLORIDE 200 MG/10 ML INJ MDV ONE ×2 (05:04→06:00)
[2022-07-04] MEDS ORDERED: ETOMIDATE 20 MG/10 ML INJ IV ONE (05:04)
--- NOTE | 2022-07-04 05:05 | Ultrasound Report ---
ULTRASOUND ABDOMEN, LIMITED INDICATION / CLINICAL INFORMATION: ABD PAIN, ELEVATED LIVER ENZYMES. COMPARISON: None available. FINDINGS: PANCREAS: Visualized portion shows no significant abnormality. LIVER: No significant abnormality. Normal hepatopedal blood flow in the main portal vein. GALLBLADDER: Multiple gallstones with a wall echo shadow complex. No pericholecystic fluid or other e vidence for acute cholecystitis. BILE DUCTS: No significant abnormality. Common bile duct measures 3 mm. FREE FLUID: None. ADDITIONAL FINDINGS: None. IMPRESSION: 1. Cholelithiasis without sonographic evidence for acute cholecystitis. Signer Name: Yves Barth MD Signed: 07/04/2022 5:00 AM Workstation Name: [email or web address]
[2022-07-04 05:10] LABS: INR 3.3 (0.87-1.13)
[2022-07-04 05:11] LABS: Partial Thromboplastin Time 45.9 Sec. (24.2-36.6)
[2022-07-04] MEDS ORDERED: MORPHINE 2 MG/1 ML INJ IV PRN (05:11)
[2022-07-04] MEDS ORDERED: MORPHINE 4 MG/1 ML INJ IV PRN (05:11)
[2022-07-04] MEDS ORDERED: DEXTROSE 50% IN WATER (25GM) 50 ML SYRINGE IV PRN (05:11)
[2022-07-04] MEDS ORDERED: ACETAMINOPHEN 325 MG TAB PO PRN (05:11)
[2022-07-04] MEDS ORDERED: ALBUTEROL 2.5 MG/3 ML NEBU IH PRN (05:11)
[2022-07-04] MEDS ORDERED: ONDANSETRON 4 MG/2 ML INJ IV PRN (05:11)
[2022-07-04] MEDS ORDERED: SODIUM CHLORIDE 0.9% 1000 ML 1,000 ML IV SCH (05:15)
--- NOTE | 2022-07-04 05:23 | History and Physical Report ---
History of Present Illness Date of examination: 07/04/22 Date of admission: 07/04/22 Chief complaint: Abdominal pain, kidney pain History of present illness: 87-year-old male with multiple medical history including diabetes, hypertension, CABG, CHF was brought to the emergency department for abdominal pain. Patient reports has been having trouble having a bowel movement as well as urinating which started 2 days ago. However he is son reports symptoms has been going on for over 2 weeks. In the emergency room patient is found to have WBC of 16.8, lactic acid of 7.3, BUN 38 creatinine 1.2. Total bilirubin 2.30, AST 483, ALT 215, alkaline phosphatase 167. CT scan of the abdomen and pelvis showed cholelithiasis and choledocholithiasis. Mild biliary dilatation without evidence for acute cholecystitis. Further evaluation/treatment by ERCP may be warranted. Left lower lobe alveolar infiltrate representing either a symmetric edema or pneumonia. Small left pleural effusion with a trace layering component and partially loculated intrafissural component. Trace ascites and other chronic incidental finding. Subcu Case was discussed with surgeon Dr. Crandall and GI. During the hospital emergency room patient coded subsequently patient was given CPR. Patient was intubated and patient was probably put on epinephrine drip as per ER physician. We are going to admit the patient we will put the patient on ICU we will put the patient on IV fluid antibiotic consult cardiology GI surgery and critical care. 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, a-fib), diabetes, hypertension, other (Kidney stone) Past Surgical History: Other (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, a-fib, prostate gland surgery) Social history: other (Former smoker) Family history: hypertension Medications and Allergies Allergies Allergy/AdvReac Type Severity Reaction Status Date / Time clonidine Allergy Unknown Verified 06/18/22 15:27 aspirin AdvReac Unknown Verified 06/18/22 15:27 ALL SULFA DRUGS Allergy Unknown Rash Uncoded 06/18/22 15:27 Home Medications Medication Instructions Recorded Confirmed Last Taken Type Clopidogrel [Plavix] 75 mg PO QDAY #30 tablet 12/02/16 Unknown Rx Gabapentin [Neurontin] 300 mg PO BID 12/02/16 12/02/16 12/01/16 History HYDROcodone/APAP 7.5-325 [[place] 1 each PO Q6HR PRN 12/02/16 12/02/16 11/29/16 History 7.5/325] Metoprolol Xl [Metoprolol 100 mg PO QDAY 12/02/16 12/02/16 12/02/16 History SUCCINATE ER TAB] Pregabalin [Lyrica] 75 mg PO BID 12/02/16 12/02/16 12/01/16 History Simvastatin (NF) [Zocor TAB] 40 mg PO QHS 12/02/16 12/02/16 12/01/16 History Valsartan [Diovan] 320 mg PO QDAY 12/02/16 12/02/16 12/02/16 History amLODIPine [Norvasc] 10 mg PO DAILY 12/02/16 12/02/16 12/02/16 History Acetaminophen [Acetaminophen TAB] 500 mg PO Q6HR PRN #30 tablet 03/28/17 U nknown Rx Neomycn/Bacitrc/Polymyx/Pramox 28 gm TP BID #1 oint...g. 03/28/17 Unknown Rx [Triple Antibioti-Pain Rlf Oint] Sennosides/Docusate Sodium 1 each PO BID #30 tablet 07/05/20 Unknown Rx [Senna-S 8.6-50 mg Tablet] Insulin NPH Hum/Reg Insulin Hm 35 unit SQ BID #1 vial 09/29/20 Unknown Rx [HumuLIN 70-30 Vial] Doxycycline Hyclate [Doxycycline 100 mg PO BID 10 Days #20 tab 04/15/21 Unknown Rx Hyclate TAB] Active Meds: Active Medications Acetaminophen (Acetaminophen 325 Mg Tab) 650 mg PO Q4H PRN PRN Reason: Pain MILD(1-3)/Fever >100.5/CESAR Albuterol (Albuterol 2.5 Mg/3 Ml Nebu) 2.5 mg IH Q3HRT PRN PRN Reason: Shortness Of Breath Albuterol/Ipratropium (Ipratropium/Albuterol Sulfate 3 Ml Ampul.Neb) 1 ampul IH Q6HRT CODY Amlodipine Besylate (Amlodipine 10 Mg Tab) 10 mg PO DAILY CODY Clopidogrel Bisulfate (Clopidogrel 75 Mg Tab) 75 mg PO QDAY CODY Dextrose (Dextrose 50% In Water (25gm) 50 Ml Syringe) 50 ml IV Q30MIN PRN; Protocol PRN Reason: Hypoglycemia Famotidine (Famotidine 20 Mg/2 Ml Inj) 20 mg IV BID CODY Sodium Chloride (Nacl 0.9% 1000 Ml) 1,000 mls @ 250 mls/hr IV ONCE ONE Stop: 07/04/22 06:52 Last Admin: 07/04/22 04:09 Dose: 250 mls/hr Sodium Chloride (Nacl 0.9% 1000 Ml) 1,000 mls @ 125 mls/hr IV DIRECT CODY Epinephrine 5 mg/ Sodium (Chloride) 250 mls @ 30.617 mls/hr IV TITR CODY; Protocol Insulin Human Lispro (Insulin Lispro 100 Unit/Ml) 0 unit SUB-Q Q6HR CODY; Protocol Metoprolol Succinate (Metoprolol Succinate Xl 100 Mg Tab) 100 mg PO QDAY CODY Miscellaneous Medication (Simvastatin (Nf)) 40 mg PO QHS CODY Miscellaneous Medication (Valsartan [Diovan]) 320 mg PO QDAY [facility] Morphine Sulfate (Morphine 2 Mg/1 Ml Inj) 2 mg IV Q4H PRN PRN Reason: Pain, Moderate (4-6) Morphine Sulfate (Morphine 4 Mg/1 Ml Inj) 4 mg IV Q4H PRN PRN Reason: Pain , Severe (7-10) Ondansetron HCl (Ondansetron 4 Mg/2 Ml Inj) 4 mg IV Q8H PRN PRN Reason: Nausea And Vomiting Sodium Chloride (Sodium Chloride 0.9% 10 Ml Flush Syringe) 10 ml IV BID [facility] Sodium Chloride (Sodium Chloride 0.9% 10 Ml Flush Syringe) 10 ml IV PRN PRN PRN Reason: LINE FLUSH Review of Systems All systems: negative Gastrointestinal: abdominal pain, constipation, other (Kidney pain) Exam - Constitutional Vitals: Temp Pulse Resp BP Pulse Ox 98.8 F 139 H 32 H 120/82 99 07/03/22 08:53 07/04/22 03:16 07/04/22 03:16 07/04/22 03:16 07/04/22 03:16 General appearance: Present: no acute distress, well-nourished - EENT Eyes: Present: PERRL ENT: hearing intact, clear oral mucosa - Neck Neck: Present: supple, normal ROM - Respiratory Respiratory effort: normal Respiratory: bilateral: CTA - Cardiovascular Heart Sounds: Present: S1 & S2. Absent: rub, click - Extremities Extremities: pulses symmetrical, No edema Peripheral Pulses: within normal limits - Abdominal General gastrointestinal: Present: soft, non-tender, non-distended, normal bowel sounds Male genitourinary: Present: normal - Integumentary Integumentary: Present: clear, warm, dry - Musculoskeletal Musculoskeletal: gait normal, strength equal bilaterally - Psychiatric Psychiatric: other (Patient is status post intubation) - Neurologic Neurologic: CNII-XII intact, moves all extremities Results - Labs CBC & Chem 7: 07/04/22 01:21 07/04/22 01:21 Labs: Laboratory Last Values WBC 20.1 K/mm3 (4.5-11.0) H 07/04/22 01:21 RBC 4.27 M/mm3 (3.65-5.03) 07/04/22 01:21 Hgb 12.5 gm/dl (11.8-15.2) 07/04/22 01:21 Hct 39.0 % (35.5-45.6) 07/04/22 01:21 MCV 92 fl (84-94) 07/04/22 01:21 MCH 29 pg (28-32) 07/04/22 01:21 MCHC 32 % (32-34) 07/04/22 01:21 RDW 15.3 % (13.2-15.2) H 07/04/22 01:21 Plt Count 251 K/mm3 (140-440) 07/04/22 01:21 Lymph % (Auto) 5.0 % (13.4-35.0) L 07/03/22 09:24 [place] % (Auto) 7.2 % (0.0-7.3) 07/03/22 09:24 Eos % (Auto) 0.0 % (0.0-4.3) 07/03/22 09:24 Baso % (Auto) 0.2 % (0.0-1.8) 07/03/22 09:24 Lymph # (Auto) 0.8 K/mm3 (1.2-5.4) L 07/03/22 09:24 [place] # (Auto) 1.2 K/mm3 (0.0-0.8) H 07/03/22 09:24 Eos # (Auto) 0.0 K/mm3 (0.0-0.4) 07/03/22 09:24 Baso # (Auto) 0.0 K/mm3 (0.0-0.1) 07/03/22 09:24 Seg Neutrophils % 87.6 % (40.0-70.0) H 07/03/22 09:24 Seg Neutrophils # 14.7 K/mm3 (1.8-7.7) H 07/03/22 09:24 PT 38.8 Sec. (12.2-14.9) H 07/04/22 04:38 INR 3.30 (0.87-1.13) H 07/04/22 04:38 APTT 45.9 Sec. (24.2-36.6) H 07/04/22 04:38 Sodium 124 mmol/L (137-145) L 07/04/22 01:21 Potassium 4.9 mmol/L (3.6-5.0) 07/04/22 01:21 Chloride 86.6 mmol/L (98-107) L 07/04/22 01:21 Carbon Dioxide 13 mmol/L (22-30) L 07/04/22 01:21 Anion Gap 29 mmol/L 07/04/22 01:21 BUN 53 mg/dL (9-20) H 07/04/22 01:21 Creatinine 1.3 mg/dL (0.8-1.3) 07/04/22 01:21 Estimated GFR 52 ml/min 07/04/22 01:21 BUN/Creatinine Ratio 41 % 07/04/22 01:21 Glucose 327 mg/dL (75-100) H 07/04/22 01:21 POC Glucose 248 mg/dL (70-105) H 07/03/22 19:34 Lactic Acid 7.30 mmol/L (0.7-2.0) H* 07/04/22 01:21 Calcium 8.7 mg/dL (8.4-10.2) 07/04/22 01:21 Total Bilirubin 2.30 mg/dL (0.1-1.2) H 07/03/22 09:24 AST 483 units/L (5-40) H 07/03/22 09:24 ALT 215 units/L (7-56) H 07/03/22 09:24 Alkaline Phosphatase 167 units/L (35-129) H 07/03/22 09:24 Total Protein 6.3 g/dL (6.3-8.2) 07/03/22 09:24 Albumin 3.7 g/dL (3.9-5) L 07/03/22 09:24 Albumin/Globulin Ratio 1.4 % 07/03/22 09:24 Urine Color [place] (Yellow) 07/03/22 14:40 Urine Turbidity Slightly-cloudy (Clear) 07/03/22 14:40 Urine pH 5.0 (5.0-7.0) 07/03/22 14:40 Ur Specific [place] 1.016 (1.003-1.030) 07/03/22 14:40 Urine Protein >500 mg/dL (Negative) 07/03/22 14:40 Urine Glucose (UA) Neg mg/dL (Negative) 07/03/22 14:40 Urine Ketones Tr mg/dL (Negative) 07/03/22 14:40 Urine Blood Mod (Negative) 07/03/22 14:40 Urine Nitrite Neg (Negative) 07/03/22 14:40 Urine Bilirubin Neg (Negative) 07/03/22 14:40 Urine Ictotest 1.035 (Negative) 07/03/22 14:40 Urine Urobilinogen 4.0 mg/dL (<2.0) 07/03/22 14:40 Ur Leukocyte Esterase Neg (Negative) 07/03/22 14:40 Urine WBC (Auto) 9.0 /HPF (0.0-6.0) H 07/03/22 14:40 Urine RBC (Auto) 2.0 /HPF (0.0-6.0) 07/03/22 14:40 U Epithel Cells (Auto) 1.0 /HPF (0-13.0) 07/03/22 14:40 Urine Mucus Few /HPF 07/03/22 14:40 Microbiology: Microbiology 07/04/22 01:43 Peripheral/Venous Blood Culture - Preliminary Culture in Progress 07/04/22 01:43 Peripheral/Venous Blood Culture - Preliminary Culture in Progress - Imaging and Cardiology CT scan - abdomen: report reviewed Assessment and Plan VTE prophylaxis?: Chemical Plan of care discussed with patient/family: Yes - Patient Problems (1) Sepsis Current Visit: Yes Status: Acute Plan to address problem: Admit the patient to the ICU. NPO. Normal saline at the rate of 125 cc/h. Vancomycin 1 g IV every 12 hours. Zosyn 4.5 g IV every 8 hours. Blood culture urine culture. Will consult surgery and GI for evaluation. Recheck CBC BMP in the morning (2) Cardiac arrest Current Visit: Yes Status: Acute Plan to address problem: Plavix 75 mg p.o. daily. Simvastatin 40 mg p.o. daily. Serial cardiac enzymes. Echocardiogram. Cardiology evaluation (3) Cholelithiasis with choledocholithiasis Current Visit: Yes Status: Acute Plan to address problem: NPO. Normal saline at the rate of 125 cc/h. Vancomycin 1 g IV every 12 hours. Zosyn 4.5 g IV every 8 hours. Blood culture urine culture. Will consult s urgery and GI for evaluation. Recheck CBC BMP in the morning (4) Abdominal pain Current Visit: Yes Status: Acute Plan to address problem: NPO. Normal saline at the rate of 125 cc/h. Vancomycin 1 g IV every 12 hours. Zosyn 4.5 g IV every 8 hours. Blood culture urine culture. Will consult surgery and GI for evaluation. Recheck CBC BMP in the morning (5) UTI (urinary tract infection) Current Visit: Yes Status: Acute Plan to address problem: Vancomycin 1 g IV every 12 hours. Zosyn 4.5 g IV every 8 hours. Blood culture /urine culture. (6) CAD (coronary artery disease) Current Visit: Yes Status: Chronic Plan to address problem: Plavix 75 mg p.o. daily. Simvastatin 40 mg p.o. daily. Serial cardiac enzymes. Echocardiogram. Cardiology evaluation (7) Diabetes Current Visit: Yes Status: Chronic Plan to address problem: Accu-Chek every 6 hours with Humalog moderate dose coverage. Diabetic educat ion. Recheck BMP in the morning (8) Hypertension Current Visit: No Status: Chronic Plan to address problem: Amlodipine 10 mg p.o. daily. Diovan 320 mg p.o. daily. Echocardiogram. Cardiology evaluation (9) DVT prophylaxis Current Visit: Yes Status: Acute Plan to address problem: Heparin 5000 units subcu every 8 hours for DVT prophylaxis. Pepcid 20 mg IV every 12 hours for GI prophylaxis. Patient is a full code. Prognosis is guarded
[2022-07-04] MEDS ORDERED: ATROPINE 0.1% (1 MG/10 ML) CARDIAC SYRINGE ONE (06:00)
[2022-07-04] MEDS ORDERED: PIPERACIL/TAZOBACTA 4.5/NS 100 4.5 GM/100 ML VIAL IV SCH (06:00)
[2022-07-04] MEDS ORDERED: CALCIUM CHLORIDE 1,000 MG/10 ML SYRINGE IV ONE (06:00)
[2022-07-04] MEDS ORDERED: SODIUM BICARB 8.4% 50 MEQ/50 ML SYRINGE IV ONE (06:00)
[2022-07-04] MEDS ORDERED: ROCURONIUM 50 MG/5 ML INJ IV ONE (06:00)
[2022-07-04] MEDS ORDERED: EPINEPHrine 1 MG/1 ML 5 MG in SODIUM CHLORIDE 0.9% 250ML 245 ML IV SCH (06:00)
[2022-07-04] MEDS ORDERED: VANCOMYCIN/NS 1 GM/250 ML 1 GM/250 ML BAG IV SCH (06:00)
[2022-07-04] MEDS ORDERED: INSULIN LISPRO 100 UNIT/ML SUB-Q SCH (06:00)
[2022-07-04] MEDS ORDERED: EPINEPHrine 1 MG/10 ML SYRINGE ONE (06:00)
[2022-07-04] MEDS ORDERED: VANCOMYCIN 1,500 MG in SODIUM CHLORIDE 0.9% 500 ML 500 ML IV SCH (06:00)
[2022-07-04] MEDS ORDERED: HEPARIN 5,000 UNIT/1 ML VIAL SUB-Q SCH (06:00)
--- NOTE | 2022-07-04 06:08 | Event Note ---
Date: 07/04/22 Patient was coded twice in the emergency room. Patient was given CPR as per ACLS protocol by the ER physician. Patient was intubated. Patient was put on epinephrine drip. But patient failed to regain ROSC. Patient at the emergency room due to cardiopulmonary arrest. Code was contacted by the emergency room physician
[2022-07-04 06:09] VITALS: BP 122/68
[2022-07-04] MEDS ORDERED: IPRATROPIUM/ALBUTEROL SULFATE 3 ML AMPUL.NEB IH SCH (08:00)
--- NOTE | 2022-07-04 09:44 | Event Note ---
Date: 07/04/22 GI was called by ED provider overnight around 3:40 AM and discussed case over the phone. Patient came to the ED with abdominal pain and nausea/vomiting. Work up significant for lactic acidosis, elevated LFTs, and CT findings of cholelithiasis and choledocholithiasis with biliary ductal dilation. HD unstable with tachycardia with HR in 130s and hypotensive. Likely septic shock with metabolic acidosis with suspected due to cholangitis. Discussed recommendations to the ED provider for medical resuscitation/stabilization with IVF, bicarb, and antibiotic coverage and that patient needs ICU evaluation and too unstable for ERCP procedure. Patient noted to have coded and shortly this morning prior to my in person evaluation.
[2022-07-04] MEDS ORDERED: FAMOTIDINE 20 MG/2 ML INJ IV SCH ×2 (10:00)
[2022-07-04] MEDS ORDERED: NON-FORMULARY EACH (Valsartan [Diovan] 320 MG Tablet) PO SCH (10:00)
[2022-07-04] MEDS ORDERED: METOPROLOL SUCCINATE XL 100 MG TAB PO SCH (10:00)
[2022-07-04] MEDS ORDERED: VALSARTAN 160MG TAB PO SCH (10:00)
[2022-07-04] MEDS ORDERED: amLODIPine 10 MG TAB PO SCH (10:00)
[2022-07-04] MEDS ORDERED: CLOPIDOGREL 75 MG TAB PO SCH (10:00)
--- NOTE | 2022-07-04 10:53 | Event Note ---
Date: 07/04/22 General surgery was consulted by ER this morning between 3 and 4 AM. Was given information the patient is an 87-year-old male who presented with several days of abdominal pain and was in septic shock. Patient had a previous history of A. fib, cardiac bypass on Eliquis. Patient had a CT scan that showed cholelithiasis with choledocholithiasis and no obvious signs of cholecystitis. Patient also had biliary duct dilatation with a bilirubin of 2.4 and other elevation in liver enzymes and lactic acid of more than 7. Patient was hypotensive and tachycardic. GI was called just prior to me and determined that he may be a candidate for ERCP but was too unstable and need to be resuscitated. I agreed with that recommendation and at this time there was nothing for general surgery to do as taking out his gallbladder would not improve his symptoms (even if he was stable) if he was having ascending cholangitis due to biliary ductal obstruction. I agreed to see the patient in the morning and when I had reached the hospital around 930 upon chart check patient had a little after 5 AM.
[2022-07-04] MEDS ORDERED: PIPERACILLIN/TAZOBACTAM 3.375 3.375 GM/50 ML BAG IV SCH (12:00)
[2022-07-04] MEDS ORDERED: NON-FORMULARY EACH (Simvastatin (Nf) 40 MG Tablet) PO SCH (22:00)
--- NOTE | 2022-07-13 16:34 | Discharge Summary ---
Providers - Providers Date of Admission: 07/04/22 05:11 Date of discharge: 07/04/22 Attending physician: NINFA GLOVER MD 07/04/22 05:11 Consult to Dietitian/Nutrition [CONS] Routine Physician Instructions: Reason For Exam: Reason for Consult: Diet education Consult to Physician [CONS] Routine Comment: Consulting Provider: MARTHA WANG Physician Instructions: Reason For Exam: Cardiac arrest Consult to Physician [CONS] Routine Comment: Consulting Provider: TASIA CRANDALL Physician Instructions: Reason For Exam: Cholelithiasis 07/04/22 05:17 Consult to Physician [CONS] Routine Comment: Consulting Provider: KARTHIK YOUNG Physician Instructions: Reason For Exam: Choledocholithiasis Consult to Physician [CONS] Routine Comment: Consulting Provider: LEILA MÉNDEZ Physician Instructions: Reason For Exam: cardiac arrest Primary care physician: SANTO WHITMAN 87-year-old male with multiple medical history including diabetes, hypertension, CABG, CHF was brought to the emergency department for abdominal pain. Patient reports has been having trouble having a bowel movement as well as urinating which started 2 days ago. However he is son reports symptoms has been going on for over 2 weeks. In the emergency room patient is found to have WBC of 16.8, lactic acid of 7.3, BUN 38 creatinine 1.2. Total bilirubin 2.30, AST 483, ALT 215, alkaline phosphatase 167. CT scan of the abdomen and pelvis showed cholelithiasis and choledocholithiasis. Mild biliary dilatation without evidence for acute cholecystitis. Further evaluation/treatment by ERCP may be warranted. Left lower lobe alveolar infiltrate representing either a symmetric edema or pneumonia. Small left pleural effusion with a trace layering component and partially loculated int rafissural component. Trace ascites and other chronic incidental finding. Subcu Case was discussed with surgeon Dr. Crandall and GI. During the hospital emergency room patient coded subsequently patient was given CPR. Patient was intubated and patient was probably put on epinephrine drip as per ER physician. We are going to admit the patient we will put the patient on ICU we will put the patient on IV fluid antibiotic consult cardiology GI surgery and critical care. Patient was coded twice in the emergency room. Patient was given CPR as per ACLS protocol by the ER physician. Patient was intubated. Patient was put on epinephrine drip. But patient failed to regain ROSC. Patient at the emergency room due to cardiopulmonary arrest. Code was contacted by the emergency room physician Hospitalization Condition: Critical Disposition: 20 - Discharge Diagnoses (1) Sepsis Status: Acute (2) Cardiac arrest Status: Acute (3) Cholelithiasis with choledocholithiasis Status: Acute (4) Abdominal pain Status: Acute (5) UTI (urinary tract infection) Status: Acute (6) CAD (coronary artery disease) Status: Chronic (7) Diabetes Status: Chronic (8) Hypertension Status: Chronic (9) DVT prophylaxis Status: Acute Exam - Constitutional Vitals: Temp Pulse Resp BP Pulse Ox 98.8 F 47 L 0 L 122/68 90 07/03/22 08:53 07/04/22 06:00 07/04/22 06:00 07/04/22 06:00 07/04/22 05:30 Plan Follow up with: SANTO WHITMAN MD [Primary Care Provider] - 3-5 Days
== END 2022-07-04 17:00 | DRG 871 ==
LOC: ED 08:27 → CC1 07-04 05:11
PROVIDERS: ADMIT Hospitalist; ATTEND Hospitalist
PROC: 5A12012 Performance of Cardiac Output, Single, Manual (ICD-10-PCS; principal; 2022-07-04)
DX: A41.9 Sepsis, unspecified organism (principal); I46.9 Cardiac arrest, cause unspecified; R65.21 Severe sepsis with septic shock; J18.9 Pneumonia, unspecified organism; N39.0 Urinary tract infection, site not specified; E87.2 Acidosis; K80.32 Calculus of bile duct with acute cholangitis without obstruction; I11.0 Hypertensive heart disease with heart failure; I50.9 Heart failure, unspecified; I25.10 Atherosclerotic heart disease of native coronary artery without angina pectoris; I48.91 Unspecified atrial fibrillation; J44.9 Chronic obstructive pulmonary disease, unspecified; K80.70 Calculus of gallbladder and bile duct without cholecystitis without obstruction; E11.9 Type 2 diabetes mellitus without complications; Z79.4 Long term (current) use of insulin; Z95.1 Presence of aortocoronary bypass graft; Z88.6 Allergy status to analgesic agent; Z88.2 Allergy status to sulfonamides; Z88.8 Allergy status to other drugs, medicaments and biological substances; Z87.891 Personal history of nicotine dependence; Z82.49 Family history of ischemic heart disease and other diseases of the circulatory system
CPT/HCPCS: 36415; 71045; 74176; 76705; 80048; 80053; 81001; 82140; 82962; 85025; 85027; 85610; 85730; 87040; 87086; 96374; 99285; G0378; J3490; J0171; J0330; J0461; J2543; J3370; J7040; J7050